=== PATIENT | female | born 1980 | race Caucasian/White ===

== ENCOUNTER 2019-12-22 07:57 | Inpatient (IN) | payer OTHER, SELFPAY ==
[2019-12-22] VITALS (41 sets, daily range): BP systolic 98–161; BP diastolic 59–121; PULSE 60–106; RESP 16; TEMP 36.9; O2SAT 100; BMI 30.7
[2019-12-22 09:37] LABS: Basophils Absolute Auto 0.1 K/mm3 (0.0-0.1); Basophils Percent Auto 0.6 % (0.2-1.2); Eosinophils Absolute Auto 0.1 K/mm3 (0-0.3); Eosinophils Percent Auto 0.6 % (0-4.4); Hematocrit 38.1 % (37.0-47.0); Hemoglobin 13.1 g/dL (12.0-15.0); Immature Granulocyte Absolute 0.09 K/mm3 (0.00-0.031); Immature Granulocyte Percent A 0.7 % (0-0.5); Lymphocytes Absolute Auto 1.83 K/mm3 (0.9-3.2); Lymphocytes Percent Auto 13.6 % (18.3-44.2); Mean Corpuscular HGB Conc 34.4 g/dl (32-36); Mean Corpuscular Volume 93.2 fl (80-100); Mean Platelet Volume 10.1 fl (7.4-10.4); Monocytes Absolute Auto 0.8 K/mm3 (0.1-0.6); Monocytes Percent Auto 5.9 % (2.6-8.5); Neutrophils Absolute Auto 10.6 K/mm3 (1.3-6.7); Neutrophils Percent Auto 78.6 % (45.5-73.1); Platelet Count Result 297 k/mm3 (150-375); Red Blood Count 4.09 M/mm3 (4.2-5.4); Red Cell Distribution Width 12.7 % (11.5-14.5); White Blood Count 13.5 K/mm3 (4.5-10.0)
[2019-12-22] MEDS: AMPICILLIN 2 GM/NS 100 ML 2 GM/100 ML BAG IVPB (09:43)
[2019-12-22] MEDS: LACTATED RINGERS 1,000 ML 125 ML IV CONT ×2 (09:43→15:34)
[2019-12-22] MEDS: OXYTOCIN 30 UNITS/NS 500 ML 30 UNITS/500 ML BAG IV CONT (09:44)
[2019-12-22] MEDS: AMPICILLIN 1 GM/NS 50 ML 1 GM/50 ML BAG IVPB (14:17)
--- NOTE | 2019-12-22 14:43 | WPDOBADMIT ---
Obstetrics - Admit Note Admission Note: record reviewed. No pertinent additions to the history and/or any subsequent changes in the physical findings that are not consistent with the expected course of the were found. SROM around midnight, forebag noted SVE 3/80/-2. moderate amount of clear, odorless fluid with AROM Additions to the history and/or subsequent changes in the physical findings follow. None.
--- NOTE | 2019-12-22 16:04 | LDADM ---
This patient, Dilcia Sanchez, was admitted to Labor/Delivery/Recovery 109 on 12/22/19 at 07:57. Plans for labor, pain management and were discussed with patient. Patient/family oriented to hospital policies and general routines including ID bracelet, bed and alarms, visiting hours, pain management, procedures, bathroom and other care routines, personal items, smoking policy, room service/diet and guest tray routines, security routines, and visiting hours. Patient/Family are encouraged to report perceived risks to care and to ask questions if they do not understand what they are told or what they should do. See OBIX for further documentation.
--- NOTE | 2019-12-22 17:01 | PM.OBPRVD ---
OB - Delivery Note Procedure Delivery date: 12/22/19 Procedure: vaginal delivery events: Prolonged Rupture of Membrane Intrapartal events: None Induction method: none Delivery augmentation: rupture of membranes and pitocin Delivery monitor: external FHT and external uterine Laceration description: Perineal - 2nd Degree Delivery repair: vicryl Specimen: No Estimated blood loss (mL): 165 Anesthesia type: Local Disposition: other () Baby Date of : 12/22/19 Time of : 16:40 Weeks of gestation at delivery: 38 Infant gender: Female Weight (pounds): 7 Weight (ounces): 13 presentation: vertex position: Left Occiput Anterior cord vessel description: 3 Vessels and Clamped/Cut Narrative: baby needing extra stimulation crying, to nursery for monitoring
[2019-12-22] MEDS: OXYTOCIN 30 UNITS/NS 500 ML 30 UNITS/500 ML BAG 125 UNITS IV CONT (17:51)
[2019-12-22] MEDS: IBUPROFEN 600 MG TABLET PO (18:45)
[2019-12-22] MEDS: BENZOCAINE 20% AER SPR (*SP) 56 GM CAN 1 SPRAY TOPICAL (18:45)
[2019-12-22] MEDS: WITCH HAZEL 40 PADS 1 PAD TOPICAL (18:45)
[2019-12-23 05:42] LABS: Hematocrit 28.2 % (37.0-47.0); Hemoglobin 9.6 g/dL (12.0-15.0)
[2019-12-23 07:11] LABS: Rapid Plasma Reagin Non-Reactive (NonReactive)
--- NOTE | 2019-12-23 08:03 | P.PNOB_ITS ---
OB - PN: Subj Subjective Date/time seen: 12/23/19 08:03 Patient comments: no complaints baby status: doing well [place] feeding status: exclusively breast feeding OB - PN: Obj Data Labs CBC & Chem 7: 12/23/19 04:35 Labs: Laboratory Results - last 24 hr 12/22/19 12/22/19 12/22/19 09:25 09:25 09:25 WBC 13.5 H RBC 4.09 L Hgb 13.1 Hct 38.1 MCV 93.2 MCH 32.0 MCHC 34.4 RDW 12.7 Plt Count 297 MPV 10.1 Immature Gran % (Auto) 0.7 H Neut % (Auto) 78.6 H Lymph % (Auto) 13.6 L [place] % (Auto) 5.9 Eos % (Auto) 0.6 Baso % (Auto) 0.6 Lymph # (Auto) 1.83 [place] # (Auto) 0.8 H Eos # (Auto) 0.1 Baso # (Auto) 0.1 Abs Immat Gran (auto) 0.09 H Absolute Neuts (auto) 10.6 H Absolute Nucleated RBC 0.0 Nucleated RBC % 0.0 RPR Non-reactive Blood Type B Positive Antibody Screen Negative 12/23/19 04:35 WBC RBC Hgb 9.6 L D Hct 28.2 L MCV MCH MCHC RDW Plt Count MPV Immature Gran % (Auto) Neut % (Auto) Lymph % (Auto) [place] % (Auto) Eos % (Auto) Baso % (Auto) Lymph # (Auto) [place] # (Auto) Eos # (Auto) Baso # (Auto) Abs Immat Gran (auto) Absolute Neuts (auto) Absolute Nucleated RBC Nucleated RBC % RPR Blood Type Antibody Screen OB - PN A/P Plan day: 1 Plan: routine care and discharge home Time Spent With Patient Time: Total time spent is greater than 50% in coordination of care (as documented) at patient's floor/unit and/or counseling patient: Review of Systems Review of Systems: All systems reviewed & are unremarkable except as noted in HPI and below Constitutional: Constitutional: Reports as per HPI Cardiovascular: Cardiovascular: Reports as per HPI Exam Const: General: comfortable Resp: Effort & Inspection: normal respiratory effort Psych: Appearance: grossly normal Affect: normal affect Attitude: cooperative Judgement: Good judgement present (Psych)
[2019-12-23 08:05] VITALS: BP 108/62; PULSE 70; RESP 18; TEMP 36.8
[2019-12-23] MEDS: DOCUSATE SODIUM 100 MG CAPSULE PO (08:45)
[2019-12-23] MEDS: MULTIVIT/MIN/PREN/FOL AC/IRON TABLET 1 TAB PO (08:45)
[2019-12-23] MEDS: SERTRALINE HCL 25 MG TABLET PO (08:45)
[2019-12-23] MEDS: IBUPROFEN 600 MG TABLET PO (08:45)
[2019-12-23] MEDS: POLYSACCHARIDE IRON COMPLEX 150 MG CAPSULE PO ×2 (08:45→15:59)
--- NOTE | 2019-12-23 09:20 | PC.NURSE ---
Mother called out for assist with latch and waking infant. Mother's last child to breastfeed is now 10yrs old. Mother is concerned is not waking. Assured mother this is normal for the first several days. Reviewed infant feeding cues, frequencies, duration of feedings, feeding elimination flow sheet, and signs of adequate intake. Demonstrated stimulation techniques to wake for feeding. Assisted with infant to breast. Reviewed positioning/alignment in cross cradle, holding breast in U hold and guided asymmetrical latch on. Discussed rational for each. was able to latch correctly within the first few attempts. nursed eagerly, with steady draws and frequent swallowing noted. Reviewed signs of a correct latch, effective nursing and suck swallow ratio. Infant was able to maintain latch without discomfort to mother. Nipple care reviewed. Suggested mother stimulate while feeding to keep infant awake and nursing effectively and to assist with maintaining deep latch. Instructed mother to call out for RN assistance if she is unable to latch for feeding or she has discomfort with nursing. Instructed feeding should be initiated three hours from start of last feeding or if feeding cues are noted before. Mother voiced understanding of information shared.
[2019-12-23 19:30] VITALS: BP 114/60; PULSE 80; RESP 16; TEMP 36.9; O2SAT 100
--- NOTE | 2019-12-24 07:00 | PC.NURSE ---
Pt introductions made and plan of care discussed per post , pain management, breast feeding, daily care activities and pending discharge to home> PT verbalized understanding of such care.
--- NOTE | 2019-12-24 08:07 | P.PNOB_ITS ---
OB - PN: Subj Subjective Date/time seen: 12/24/19 08:07 OB - PN: Obj Data Labs CBC & Chem 7: 12/23/19 04:35 OB - PN A/P Plan day: 2 Plan: routine care and discharge home Comments: Follow up 4 weeks. Time Spent With Patient Time: Total time spent is greater than 50% in coordination of care (as documented) at patient's floor/unit and/or counseling patient: Time with patient: less than 15 minutes Review of Systems Review of Systems: All systems reviewed & are unremarkable except as noted in HPI and below Exam 2 Narrative: Exam Narrative: Fundus firm and vaginal flow controlled. Const: General: comfortable Resp: Effort & Inspection: normal respiratory effort Cardio: Rate: regular rate Psych: Appearance: grossly normal Affect: normal affect Attitude: cooperative Judgement: Good judgement present (Psych)
--- NOTE | 2019-12-24 08:09 | PM.OBDSVD ---
DS: Admitting Diagnosis Admitting Diagnosis Admitting Diagnosis: Labor OB - DS: Summary OB Procedures : None OB Procedures Intrapartum: Spontaneous Vag Delivery OB Procedures: : None Time Spent with Patient Time attestation: Total time spent providing and/or coordinating discharge services: Discharge Plan Discharge Attending physician on discharge: Sharron Sunshine Discharging Clinician: Katia Olivares Patient Disposition: Home, Self-Care Activity: pelvic rest Diet: regular Discharge Instructions: Education: Mom and Baby Guide Given to: Mother Follow-Up: Call your delivering provider's office for an appointment to be seen in: 4 Weeks Mom and baby should come to the [facility] for the follow-up appointment. Appointment Date/Time: December 26, 2019 at 11:00 am What to expect at your follow-up visit: Blood Pressure Check Call [phone] if you are unable to keep your appointment time. BREAST CARE: * Wear a snug supportive bra. * For engorgement discomfort: Breast Feeding: * Apply warm moist washcloths * Express milk as needed to relieve engorgement * Wear loose clothing Bottle Feeding: * May apply ice packs * For sore nipples: * Identify correct latch-on * Apply warm moist washcloths before and after nursing * Air dry nipples after nursing * May apply Lansinoh cream to nipples PERINEAL CARE: * Until bleeding stops, use your luis bottle after urinating * Change your pad frequently throughout the day * You may take sitz baths several times a day (fill your bathtub with warm water and soak for 20 minutes.) Do NOT bathe in the water * No tub baths until seen by your physician - You may shower ACTIVITY: * Rest as much as possible. * Do not exercise or lift anything heavier than your baby (such as laundry or other children.) * Avoid stairs or driving as much as possible. * Do not put anything into the vagina. No douching, tampons, or sexual activity until seen by physician. NOTIFY PHYSICIAN IF YOU HAVE ANY QUESTIONS OR IF ANY OF THE FOLLOWING SYMPTOMS OCCUR: * If your perineum becomes red, swollen, or more painful than what you have experienced in the hospital. * If your vaginal bleeding becomes foul smelling. * If your vaginal bleeding becomes more heavy than a period or if your bleeding changes from pink to bright red. However, you may pass an occasional walnut-sized clot once or twice for the first week . * If you experience a sharp, shooting pain in you calves. * If you discover a hard, reddened area on your breast or if you experience flu-like symptoms. *If you have a fever of 100.4 or greater DIET: * Eat regular, well-balanced meals. * Drink plenty of fluids daily. If , drink to thirst. Patient Instructions: Antibiotic Form Stand Alone Forms: General Discharge Information Follow-up/Referrals: Katia Olivares CNM [Certified Nurse Electromechanical Equipment Tester] - 4 Weeks Discharge Medications: Continued sertraline 25 mg Tablet 25 mg PO DAILY RF: 0 PNV [id number] [] 28 mg iron- 800 mcg Tablet 1 tablet PO DAILY RF: 0 Date of admission: 12/22/19 07:57 Primary Care Provider: Victor M,Malachi Admitting Provider: Sharron Sunshine Attending physician on admission: Sharron Sunshine
[2019-12-24 08:25] VITALS: BP 118/71; PULSE 71; RESP 16; TEMP 37.1
[2019-12-24 10:00] VITALS: PULSE 71; RESP 16; O2SAT 100
[2019-12-24] MEDS: MULTIVIT/MIN/PREN/FOL AC/IRON TABLET 1 TAB PO (10:09)
[2019-12-24] MEDS: DOCUSATE SODIUM 100 MG CAPSULE PO (10:09)
[2019-12-24] MEDS: POLYSACCHARIDE IRON COMPLEX 150 MG CAPSULE PO (10:09)
--- NOTE | 2019-12-24 11:00 | PC.NURSE ---
Observed mother is able to independently latch with appropriate positioning/alignment. She denies any nipple discomfort, is feeding as required and waking infant to feed if needed. has had at least 8 effective feedings in the past 24 hours, and is currently meeting outcomes for weight, output, jaundice and feeding frequencies. Mother states she feels confident to continue effective at home. Reviewed transition to breast milk, signs of adequate intake, and engorgement/relief. Instructed to call ICP if intake/output less than required. Reviewed regular medications mother is taking. Information provided per Deb. Reviewed community resources on the [facility] website and in the Mom/Baby guide. Information on outpatient services provided. Mother has no further questions at this time.
--- NOTE | 2019-12-24 11:00 | PC.NURSE ---
Pt received discharge instructions per protocol and verbalized understanding of such care.
--- NOTE | 2019-12-24 11:38 | PC.NURSE ---
PT discharged to home ambulatory accompanied by infant and significant other and taken to waiting car. Follow up appts confirmed
[2019-12-26 11:15] VITALS: BP 124/71; PULSE 76; RESP 14; TEMP 37.3; O2SAT 98
== END 2019-12-24 11:38 | disposition home or self-care (01) | DRG 807 ==
LOC: ANHLDR 08:30 → ANHOB2 19:28
PROVIDERS: Advanced Practice Midwife; Admitting Provider Obstetrics & Gynecology; PCP Internal Medicine; Visit Provider Obstetrics & Gynecology
DX: O42.92 Full-term premature rupture of membranes, unspecified as to length of time between rupture and onset of labor (principal); Z37.0 Single live birth; Z3A.38 38 weeks gestation of pregnancy; O99.824 Streptococcus B carrier state complicating childbirth; O70.1 Second degree perineal laceration during delivery
CPT/HCPCS: 36415; 85014; 85018; 85025; 86592; 86850; 86900; 86901; A9270; J0290; J2590; J3010; J7120

== ENCOUNTER 2024-11-08 19:23 | Emergency (ER) | payer OTHER, SELFPAY ==
--- OUTSIDE RECORDS SUMMARY | 2024-11-08 19:25 | XMS_ITS | Data Portability ---
Author Organization [facility] Rmaan HERNANDEZ Address [address] [facility] [place] [address] Care Team Providers Care Cook Roast Name Role Phone LANDON RACHEL [facility] Assessment No assessment recorded. Plan of Treatment Reminders Order Date Submit Date Provider Last Modified By Organization Details Last Modified Time Details Appointments None recorded. Lab HbA1c (hemoglob in A1c), blood 2024 025 [facility], [address] [place] [address], [address], 5 03:36:31 lipid panel, serum 2024 025 [facility], [address] [place] [address], [address], 5 03:36:29 CMP, serum or plasma 2024 025 [facility], [address] [place] [address] 2, [place], [address], 5 03:36:30 CBC 2024 025 [facility], [address] [place] [address] 2, [place], [address], 5 03:36:32 lipid panel, serum 2022 023 [facility], [address] [place] [address], [address], [address], 3 15:23:11 CMP, serum or plasma 2022 023 [facility], [address], [address], [place], [address], 3 15:23:10 CBC w/ auto diff 2022 023 [facility], [address], [address], [place], [address], 3 15:23:10 TSH, ultra-sen sitive, serum 2022 023 [facility], [address], [address], [place], [address], 3 15:23:10 lipid panel, serum 2021 022 [facility], [address]anny [address], [address], [place], [address], 2 15:06:53 CMP, serum or plasma 2021 022 [facility] VILL[facility], [address]anny [address], [address], [place], [address], 2 15:07:08 vitamin D, 25-hydrox y, total, serum 2021 022 [facility], [address], [address], [place], [address], 2 15:06:52 CBC w/ auto diff 2021 022 [facility], [address]anny [address], [address], [place], [address], 2 15:07:08 TSH, ultra-sen sitive, serum 2021 022 [facility], [address] [facility], [address], [place], [address], 15:07:08 Referral None recorded. Procedures None recorded. Surgeries None recorded. Imaging None recorded. Medication Orders Zyrtec [address] [facility][id number], [address], [place], [place], [id number], 5 16:20:20 triamcino lone acetonide 0.1 % topical ointment [address] [facility] #[id number], [address], [place], [place], [id number], 5 16:20:25 sertralin e 25 mg tablet 2022 023 [facility] #[id number], [address], [place], [place], [id number], 5 08:58:38 sertralin e 25 mg tablet 2020 021 [facility] #[id number], [address], [place], [place], [id number], 5 08:58:38 Patient TargetsNo targets recorded. Patient Instructions Encounter Date Encounter Id Patient Instructions Last Modified By Organization Details Last Modified Time 02/22/2021 [id number] anxiety disorder : care instructions ssuthan Not available 02/22/2021 15:34:25 06/21/2021 [id number] anxiety disorder : care instructions ssuthan Not available 06/21/2021 15:06:50 learning about healthy weight ssuthan Not available 06/21/2021 15:06:50 05/11/2022 [id number] A healthy lifestyle: care instructions ssuthan Not available 05/11/2022 15:22:58 anxiety disorder : care instructions ssuthan Not available 05/11/2022 15:22:59 06/06/2024 [id number] A healthy lifestyle: care instructions [email or web address] Not available 06/06/2024 09:33:08 Reason for Referral None Reported. Results Created Date Observation Date Name Description Value Unit Range Abnormal Flag Note LastModifiedBy Organization Detail LastModifiedTime 02/02/20 24 02/02/2024 SARS- CoV+S ARS-C oV-2 (COVI D-19) Ag [Pres ence] in Respi rator y syste m speci men by Rapid immun oassa y influenza A Ag, POC Negati ve text: negati ve Influ efrain A Ag, POC Negat clemencia Negat clemencia [facility] Not Available Not Available 07/16/2024 16:09:04 02/02/20 24 02/02/2024 SARS- CoV+S ARS-C oV-2 (COVI D-19) Ag [Pres ence] in Respi rator y syste m speci men by Rapid immun oassa y influenza B Ag, POC Negati ve text: negati ve Influ efrain B Ag, POC Negat clemencia Negat clemencia [facility] Not Available Not Available 07/16/2024 16:09:04 02/02/20 24 02/02/2024 SARS- CoV+S ARS-C oV-2 (COVI D-19) Ag [Pres ence] in Respi rator y syste m speci men by Rapid immun oassa y covid-19 Ag POC Presum ptive Negati ve text: presum ptive negati ve, invali d COVID -19 Ag POC Presu mptiv e Negat clemencia Presu mptiv e Negat clemencia, Inval id [facility] Not Available Not Available 07/16/2024 16:09:04 02/02/20 24 02/02/2024 SARS- CoV+S ARS-C oV-2 (COVI D-19) Ag [Pres ence] in Respi rator y syste m speci men by Rapid immun oassa y interpretati on and review of laboratory results Normal Not Available Not Available 07/05 16:09:04 06/06/19 25 06/07/2024 LIPID PANEL cholesterol, total 179 mg/dL 100-19 9 Not Available [facility] ([facility]) [address] [facility] [place], [address], 06/07/2024 03:36:28 06/06/19 25 06/07/2024 LIPID PANEL triglyceride s 77 mg/dL 0-149 Not Available [facility] ([facility]) [address] [facility] [place], [address], 06/07/2024 03:36:28 06/06/19 25 06/07/2024 LIPID PANEL HDL cholesterol 54 mg/dL >39 Not Available [facility] ([facility]) [address] [place], [address], 06/07/2024 03:36:28 06/06/19 25 06/07/2024 LIPID PANEL VLDL cholesterol nayana 14 mg/dL 5-40 Not Available [facility] ([facility]) [address] [place], [address], 06/07/2024 03:36:28 06/06/19 25 06/07/2024 LIPID PANEL LDL chol calc ([facility]) 111 mg/dL 0-99 above high normal Not Available [facility] ([facility]) [address] [place], [address], 06/07/2024 03:36:28 06/06/19 25 06/07/2024 COMP. METAB OLIC PANEL (14) glucose 86 mg/dL 70-99 Not Available [facility] ([facility]) [address] [place], [address], 06/07/2024 03:36:30 06/06/19 25 06/07/2024 COMP. METAB OLIC PANEL (14) BUN 10 mg/dL 6-24 Not Available [facility] ([facility]) [address] [place], [address], 06/07/2024 03:36:30 06/06/19 25 06/07/2024 COMP. METAB OLIC PANEL (14) creatinine 0.85 mg/dL 0.57-1 .00 Not Available [facility] ([facility]) [address], [place], [address], 06/07/2024 03:36:30 06/06/19 25 06/07/2024 COMP. METAB OLIC PANEL (14) eGFR 87 mL/mi n/1.7 3 >59 Not Available [facility] ([facility]) [address] [place], [address], 06/07/2024 03:36:30 06/06/19 25 06/07/2024 COMP. METAB OLIC PANEL (14) BUN/creatini ne ratio 12 9-23 Not Available [facility] ([facility]) [address] [place], [address], 06/07/2024 03:36:30 06/06/19 25 06/07/2024 COMP. METAB OLIC PANEL (14) sodium 139 mmol/ L 134-14 4 Not Available [facility] ([facility]) [address] [place], [address], 06/07/2024 03:36:30 06/06/19 25 06/07/2024 COMP. METAB OLIC PANEL (14) potassium 4.2 mmol/ L 3.5-5. 2 Not Available [facility] ([facility]) [address] [place], [address], 06/07/2024 03:36:30 06/06/19 25 06/07/2024 COMP. METAB OLIC PANEL (14) chloride 104 mmol/ L 96-106 Not Available [facility] ([facility]) [address] [place], [address], 06/07/2024 03:36:30 06/06/19 25 06/07/2024 COMP. METAB OLIC PANEL (14) carbon dioxide, total 23 mmol/ L 20-29 Not Available [facility] ([facility]) [address] [facility] [place], [address], 06/07/2024 03:36:30 06/06/19 25 06/07/2024 COMP. METAB OLIC PANEL (14) calcium 9.3 mg/dL 8.7-10 .2 Not Available [facility] ([facility]) [address] [facility], [place], [address], 06/07/2024 03:36:30 06/06/19 25 06/07/2024 COMP. METAB OLIC PANEL (14) protein, total 7.2 g/dL 6.0-8. 5 Not Available [facility] ([facility]) [address] [facility], [place], [address], 06/07/2024 03:36:30 06/06/19 25 06/07/2024 COMP. METAB OLIC PANEL (14) albumin 4.5 g/dL 3.9-4. 9 Not Available [facility] ([facility]) [address] [facility], [place], [address], 06/07/2024 03:36:30 06/06/19 25 06/07/2024 COMP. METAB OLIC PANEL (14) globulin, total 2.7 g/dL 1.5-4. 5 Not Available [facility] ([facility]) [address] [facility], [place], [address], 06/07/2024 03:36:30 06/06/19 25 06/07/2024 COMP. METAB OLIC PANEL (14) bilirubin, total 0.6 mg/dL 0.0-1. 2 Not Available [facility] ([facility]) [address] [facility], [place], [address], 06/07/2024 03:36:30 06/06/19 25 06/07/2024 COMP. METAB OLIC PANEL (14) alkaline phosphatase 78 IU/L 44-121 Not Available [facility] ([facility]) [address] [facility], [place], [address], 06/07/2024 03:36:30 06/06/19 25 06/07/2024 COMP. METAB OLIC PANEL (14) AST (SGOT) 19 IU/L 0-40 Not Available [facility] ([facility]) [address] [place], [address], 06/07/2024 03:36:30 06/06/19 25 06/07/2024 COMP. METAB OLIC PANEL (14) ALT (SGPT) 18 IU/L 0-32 Not Available [facility] ([facility]) [address] [facility], [place], [address], 06/07/2024 03:36:30 06/06/19 25 06/07/2024 HEMOG LOBIN A1C hemoglobin A1C 4.9 % 4.8-5. 6 Predi abete s: 5.7 - 6.4 Diabe wilton: >6.4 Glyce veronica contr ol for adult s with diabe wilton: <7.0 Not Available [facility] ([facility]) [address] [facility], [place], [address], 06/07/2024 03:36:31 06/06/19 25 06/06/2024 CBC, PLATE LET, NO DIFFE RENTI AL WBC 9.0 x10e3 /uL 3.4-10 .8 Not Available [facility] ([facility]) [address] [place], [address], 06/07/2024 03:36:32 06/06/19 25 06/06/2024 CBC, PLATE LET, NO DIFFE RENTI AL RBC 4.30 x10e6 /uL 3.77-5 .28 Not Available [facility] ([facility]) [address] [place], [address], 06/07/2024 03:36:32 06/06/1906/06/2024 CBC, PLATE LET, NO DIFFE RENTI AL hemoglobin 13.2 g/dL 11.1-1 5.9 Not Available [facility] ([facility]) [address] [facility], [place], [address], 06/07/2024 03:36:32 06/06/1906/06/2024 CBC, PLATE LET, NO DIFFE RENTI AL hematocrit 40.4 % 34.0-4 6.6 Not Available [facility] ([facility]) [address] [facility], [place], [address], 06/07/2024 03:36:32 06/06/1906/06/2024 CBC, PLATE LET, NO DIFFE RENTI AL MCV 94 fL 79-97 Not Available [facility] ([facility]) [address] [facility], [place], [address], 06/07/2024 03:36:32 06/06/1906/06/2024 CBC, PLATE LET, NO DIFFE RENTI AL MCH 30.7 pg 26.6-3 3.0 Not Available [facility] ([facility]) [address] [facility], [place], [address], 06/07/2024 03:36:32 06/06/1906/06/2024 CBC, PLATE LET, NO DIFFE RENTI AL MCHC 32.7 g/dL 31.5-3 5.7 Not Available [facility] ([facility]) [address] [facility], [place], [address], 06/07/2024 03:36:32 06/06/1906/06/2024 CBC, PLATE LET, NO DIFFE RENTI AL RDW 11.9 % 11.7-1 5.4 Not Available [facility] ([facility]) [address] [facility], [place], [address], 06/07/2024 03:36:32 06/06/1906/0606/06/2024 CBC, PLATE LET, NO DIFFE PETER AL platelets 397 x10e3 /uL 150-45 0 Not Available [facility] ([facility]) [address] [facility], [place], [address], 06/07/2024 03:36:32 Result Notes None recorded. Problems Name Problem SNOMED Code Status Onset Date Resolution Date Notes Provider Name and Address Organization Details Recorded Time Carpal tunnel syndrome 89729098 Active 2016 DEANNE Boucher, [place] - [facility] 8 12:01:04 Body mass index 25-29 - overweight 087913216 Active 2018 Malachi Dow MD Attn: Accounting, [address] [place], [address], [place] [facility] 9 09:40:08 Generalized anxiety disorder 13882565 Active 2020 Malachi Dow MD Attn: Accounting, [address] [place], [address], [place] [facility] 1 14:18:10 Contact dermatitis caused by urushiol from [facility] 005266273 Active DEANNE Bou[place], [place] - [facility] 8 12:01:04 Non-allergic anaphylaxis 47455346 Active 2016 DEANNE Boucher, [place] [facility] 8 12:01:04 Problem Notes None recorded. Medical Equipment None Reported. Allergies No known drug allergies Medications Name Sig Start Date Stop Date Status Note LastModified by Organization Details LastModified Time Mirena 21 mcg/24 hr (up to 8 years) 52 mg intrauter ine device Take by intraute rine route. active inserted 12/2019 Not Available Not Available Not Available prednison e 10 mg tablet TAKE 4 TABLETS BY MOUTH IN THE MORNING FOR 5 DAYS THEN TAKE 2 TABLETS BY MOUTH FOR 5 DAYS THEN TAKE 1 TABLET BY MOUTH FOR 5 DAYS active Not Available Not Available No t Available clindamyc in HCl 300 mg capsule Take 1 capsule every 6 hours by oral route for 10 days. 10/18 completed Not Available Not Available Not Available prednison e 20 mg tablet 02/22 completed Not Available Not Available Not Available Zyrtec 10 mg tablet Take 1 tablet every day by oral route. 2024 active Not Available Not Available Not Avai lable sulfameth oxazole 800 mg-trimet hoprim 160 mg tablet TAKE 1 TABLET BY MOUTH TWICE DAILY 06/06 completed Not Available Not Available Not Available tramadol 50 mg tablet TAKE 1 TABLET BY MOUTH EVERY 6 HOURS NEEDED FOR PAIN 05/11 completed Not Available Not Available Not Available triamcino lone acetonide 0.1 % topical cream APPLY A THIN LAYER TO THE AFFECTED AREA(S) BY TOPICAL ROUTE 2 TIMES PER DAY 10/19 completed Not Available Not Available Not Available cephalexi n 500 mg capsule 10/19 completed Not Available Not Available Not Available triamcino lone acetonide 0.1 % topical ointment APPLY THIN LAYER TOPICALL Y TO THE AFFECTED AREA TWICE DAILY active Not Available Not Available No t Available gabapenti n 300 mg capsule Take 1 capsule every day by oral route at bedtime. 02/28 completed Not Available Not Available Not Available sertralin e 25 mg tablet TAKE 1 TABLET BY MOUTH EVERY DAY 06/06 completed Not Available Not Available Not Available hydroxyzi ne HCl 25 mg tablet 12/27 completed Not Available Not Available Not Available epinephri ne 0.3 mg/0.3 mL injection , auto-inje ctor 06/06 completed Not Available Not Available Not Available methylpre dnisolone 4 mg tablets in a dose pack TAKE DIRECTED WITH FOOD 05/11 completed Not Available Not Available Not Available sertralin e 50 mg tablet TK 1 T PO QD 12/08 completed Not Available Not Available Not Available Triveen-D uo DHA 29 mg-1 mg-400 mg oral pack 02/22 completed Not Available Not Available Not Available Vitals Date Recorded Body height Body mass index (BMI) Body weight Respiratory rate Body temperature Oxygen saturation Oxygen saturation in Arterial blood by Pulse oximetry Heart rate Systolic And Diastolic Provider Name and Address Organization Details Last Updated DateTime 3 170.18 cm 30.4 kg/m2 25757.6 4 g 12 /min 97 [degF] 98 % 98 % 72 /min 116/64 mm[Hg] Angelica Kinerd, [facility] 3 15:12:09 Date Recorded Body height Body mass index (BMI) Body weight Oxygen saturation Oxygen saturation in Arterial blood by Pulse oximetry Heart rate Body temperature Systolic And Diastolic Provider Name and Address Organization Details Last Updated DateTime 5 170.18 cm 31.6 kg/m2 17527.8 7 g 98 % 98 % 80 /min 98.5 [degF] 116/81 mm[Hg] Abigail Lowell [facility] 5 08:54:55 Date Recorded Body height Body mass index (BMI) Body weight Respiratory rate Body temperature Heart rate Oxygen saturation Oxygen saturation in Arterial blood by Pulse oximetry Systolic And Diastolic Provider Name and Address Organization Details Last Updated DateTime 2 170.18 cm 28.2 kg/m2 94239.6 3 g 12 /min 97.2 [degF] 76 /min 98 % 98 % 110/76 mm[Hg] Angelica Kine [facility] 2 14:31:26 Date Recorded Body height Body mass index (BMI) Body weight Oxygen saturation Oxygen saturation in Arterial blood by Pulse oximetry Heart rate Body temperature Respiratory rate Systolic And Diastolic Provider Name and Address Organization Details Last Updated DateTime 5 170.18 cm 31.1 kg/m2 93627.3 9 g 99 % 99 % 76 /min 97.9 [degF] 16 /min 123/81 mm[Hg] Ysabel Schneider MA [facility] 5 15:50:25 Social History Question Answer Notes LastModified by Organizat ion Details LastModified Time Tobacco Smoking Status Never Smoker JOSEPH Gil, [facility] 06/02/2014 15:18:13 Do You Have An Advance Directive? No Information not available 10/19/2020 Are You Blind Or Do You Have Difficulty Seeing? No Information not available 10/19/2020 What Is Your Level Of Caffeine Consumption? Moderate 32oz Soda Daily Information not available 06/06/2024 In The 14 Days Before Symptom Onset, Have You Had Close Contact With A Laboratory-confir med COVID-19 While That Case Was Ill? No Information not available 10/19/2020 In The 14 Days Before Symptom Onset, Have You Had Close Contact With A Person Who Is Under Investigation For COVID-19 While That Person Was Ill? No Information not available 10/19/2020 Have You Been To An Area Known To Be High Risk For COVID-19? No Information not available 10/19/2020 Are You Deaf Or Do You Have Serious Difficulty Hearing? No Information not available 10/19/2020 What Type Of Diet Are You Following? REGULAR Information not available 10/19/2020 What Is The Highest Grade Or Level Of School You Have Completed Or The Highest Degree You Have Received? [id number] Information not available 10/19/2020 Are There Any Guns Present In Your Home? No Information not available 10/19/2020 What Was The Date Of Your Most Recent Tobacco Screening? 06/06/2024 Information not available 06/06/2024 How Many Children Do You Have? 3 Information not available 06/06/2024 Do You Use Protection During Sex? No Information not available 06/06/2024 What Is Your Relationship Status? Information not available 10/19/2020 Do You Use Your Seat Belt Or Car Seat Routinely? Yes Information not available 10/19/2020 Are You Sexually Active? Yes Information not available 06/06/2024 Do You Have Smoke And Carbon Monoxide Detectors In Your Home? Yes Information not available 10/19/2020 Are You Passively Exposed To Smoke? No Information no t available 06/06/2024 Do You Use Sunscreen Routinely? No Information not available 10/19/2020 Has Tobacco Cessation Counseling Been Provided? No Information not available 10/19/2020 Sex: Female Functional Status Question Answer Note LastModified by Organizat ion Details LastModified Time Do you use any illicit or recreational drugs? No Information not available 10/19/2020 Do you or have you ever used any other forms of tobacco or nicotine? No Information not available 10/19/2020 What is your level of alcohol consumption? None Information not available 10/19/2020 Are you currently employed? Yes Information not available 10/19/2020 Are you able to care for yourself? 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 None Information not available 10/19/2020 Mental Status Question Answer Note LastModified by Organizat ion Details LastModified Time Do you feel stressed (tense, restless, nervous, or anxious, or unable to sleep at night)? [id number] 06/06/24 pt states daughter does not sleep well Information not available 06/06/2024 Family History Relationship Description Onset Age of this Age Resolved Age Notes LastModified by Organization Details LastModified Time Father No current problems or disability [email or web address] Not available 05/09 09:02:24 Mother No current problems or disability [email or web address] Not available 05/09 09:02:25 Medical History Condition Response Coronary Artery Disease N Other N Atrial Fibrillation N High Blood Pressure N Depression Y COPD N Blood Clots N Anxiety Disorder N Muscle, Joint, or Bone Problems N Arthritis N Acid Reflux (GERD) N Cancer N Stroke N Headaches N Kidney or Bladder Problems N Have you had a mammogram in the last yea r? N Eating Disorder N Skin Problems N Asthma N Allergies N Have you had a PSA blood test in the las t year? N Substance Abuse N Hepatitis N ADHD N High Cholesterol N Liver Disease N Schizophrenia N Thyroid Problems N GI Problems N Anemia N Heart Attack (PA) N Diabetes N Seizures/Epilepsy N Have you had a colonoscopy in the last 1 0 years? N Osteoporosis N Heart Failure N Gynecological History Statement/Question Response Date of Last Mammogram Date of LMP Menses Monthly N Date of Last Pap Smear Age at Menarche 12 Current Control Method IUD Age at First Child 25 Obstetrics History GPAL:G 3 P 3 0 0 3 Type Value Multiple Births 0 Full Term 3 Induced 0 Spontaneous 0 Premature 0 Living 3 Ectopics 0 Total 3 Immunizations Vaccine Type Date Status Note Provider Dmitriy dockery and Address Organization Details Recorded Time Td(adult) unspecified formulation 01/01/2002 chacha Hurtado LPN [place], [place] [facility] 02/27/2018 12:01:10 OPV, Unspecified 1980 completed Татьяна 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, 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 [place], [place] [facility] 02/27/2018 12:01:10 OPV, Unspecified 1980 completed Татьяна 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, 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 [place] [facility] 02/27/2018 12:01:10 OPV, Unspecified 1980 completed Татьяна 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, 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 [place] [facility] 02/27/2018 12:01:10 OPV, Unspecified 11/16/1981 completed Татьяна 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, 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 [place] [facility] 02/27/2018 12:01:10 OPV, Unspecified 12/24/1985 completed Татьяна 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, 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 [place] [facility] 02/27/2018 12:01:10 MMR 05/04/1981 completed Татьяна Bryant, 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 [place] [facility] 02/27/2018 12:01:10 MMR 08/27/1991 completed Татьяна Bryant, 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 [place] [facility] 02/27/2018 12:01:10 DTaP-IPV 1980 completed Татьяна Bryant, 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 [place] [facility] 02/27/2018 12:01:10 DTaP-IPV 1980 completed Татьяна Bryant, 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 [place] [facility] 02/27/2018 12:01:10 DTaP-IPV 1980 completed Татьяна Bryant, 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 [place] [facility] 02/27/2018 12:01:10 DTaP-IPV 11/16/1981 completed Татьяна Bryant, 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 [place] [facility] 02/27/2018 12:01:10 DTaP-IPV 12/24/1985 completed Татьяна Bryant, 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 [place] [facility] 02/27/2018 12:01:10 Past Encounters Encounter ID Performer Location Encounter Start Date Encounter Closed Date Diagnosis/Indication Diagnosis SNOMED-CT Code Diagnosis ICD10 Code Diagnosis Note [id number] MD Guilherme Brewer ([facility]) [address] [place] [address] 06/02/2014 15:04:44 06/02/2014 16:29:16 Health examination of sub-group [id number] 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 Will place the PPD test today. [id number] MD Guilherme Brewer ([facility] [address] [place] [address] 10/27/2014 16:23:54 10/27/2014 16:53:08 Contact dermatitis caused by urushiol from [facility] iris [id number] Take Medrol dose pack with meal and use the cream locally. Use OTC Benadryl as needed for itching (Pt has it). [id number] MD Guilherme Brewer ([facility] [address] [place] [address] 12/27/2016 10:57:01 12/27/2016 15:21:11 Non-allergic anaphylaxis 27551081 T78.2XXS s/p bug stung 10 days ago, Doing well now. [id number] MD Guilherme Brewer ([facility]) [address] [place] [address] 04/18/2017 15:53:44 04/19/2017 09:49:53 Carpal tunnel syndrome 68685711 G56.01 R/side.Con firm with [facility]. take gabapentin at nightPt has a wrist brace- may wear it at night and day PRN [id number] MD Guilherme Brewer ([facility]) [address] [place] [address] 06/18/2017 09:49:51 06/19/2017 17:01:37 History and physical examination, pre-employment [id number] Z02.1 Cleared without restrictio n. PPD todate.Alr nagi uptodate with tdap per the pt.Denies to get flu shot. Carpal rossana tung syndrome [id number] G56.01 R/side.Con firm with [facility]. take gabapentin at nightPt has a wrist brace- may wear it at night and day PRN Addendum 06/18/17Wri st splint alone helps it seems. Overweight [id number] E66 .3 Recommend to loose weight with diet control and exercise. [id number] MD Guilherme Brewer 14 IM [address] [facility] [place] [address] 02/27/2018 11:11:12 02/28/2018 10:49:15 Cellulitis [id number] L03.90 With abcess, already had I & D yesterday and on bactrim.Up date with Tdap per the pt (works at [employer] also her last child is 8 yrs old)Will sent out old pack for C& sensitivit y and new pack applied after cleaning with H2O2.. RTC tomorrow and in 1 wk [id number] MD Guilherme Brewer 14 IM 4 [facility] [place] [address] 02/28/2018 13:50:56 03/01/2018 10:59:17 Cellulitis [id number] L03.90 With abcess, already had I & D yesterday and on bactrim.Up date with Tdap per the pt (works at Day[employer] also her last child is 8 yrs old)Will sent out old pack for C& sensitivit y and new pack applied after cleaning with H2O2.. RTC tomorrow and in 1 wkAddendum 02/28/18He re for dressing change- pt tolerated the procedure. recommend to change dressing if soaked.RTC tomorrow to change dressing and see in 5 days as well. Complete bactrim, awaiting sensitivit y results. [id number] MD Guilherme Velásquez 14 IM 4 [facility] [place] [address] 03/01/2018 14:31:50 03/04/2018 15:32:19 Cellulitis [id number] L03.90 Counseled on cellulitis and medication -continue Bactrim and start Clindamyci n, soak foot in warm soapy water 3 times a day. If worsening -go to ER if no improvemen t after starting new antibiotic Abscess 196271902 L02.91 Dr. Cornelius willing to take pt-apt scheduled for Sunday [id number] MD Guilherme Brewer 14 IM [address] [facility] [place] [address] 03/08/2018 12:01:34 03/08/2018 17:26:28 Eruption [id number] R21 Probably due to clindamyci n, Pt to stop it ( so far completed 7 days Rx, mno discharge / local tenderness at I & D site)If no better, call in for probable triamcinol one topical. [id number] MD Guilherme Brewer 14 IM 4 [facility] [place] [address] 10/18/2018 09:00:41 10/21/2018 10:30:12 Contact dermatitis caused by urushiol from [place] poison iris 715748688 L25.5 Use the cream. Use protection while working in the yard. Body mass index 25-29 - overweight 155687624 Z68.26 Recommend to loose weight with diet control and exercise. [id number] MD Guilherme Brewer 14 IM 4 [facility] [place] [address] 10/19/2020 08:15:36 10/20/2020 11:31:46 Generalized anxiety disorder 14863388 F41.1 Better while on sertraline 25mg daily Ct it Aware of SEs. [id number] MD Guilherme Brewer 14 IM 4 [facility] [place] [address] 12/08/2020 12:29:38 12/10/2020 16:54:15 Contact dermatitis caused by urushiol from [place] poison iris 108463275 L25.5 Use the cream. Use protection while working in the yard. 1OTC hydrocorti kayye didn't help per the ptTry medrol dose nikia with mealbenadr yl OTC (pt has it) for itching. [id number] MD Guilherme Brewer 14 IM 4 [facility] [place] [address] 02/22/2021 14:36:02 02/23/2021 14:23:17 Generalized anxiety disorder 16616328 F41.1 Better while on sertraline 25mg daily Ct it Aware of SEs. Croupy cough 855785996 R 05.9 From her daughterRe commended OTC cough syrupHydra te wellCall if no better/ go to ER [id number] MD Guilherme Brewer 14 IM 4 [facility] [place] [address] 06/21/2021 14:21:17 06/22/2021 13:52:25 Generalized anxiety disorder 49083793 F41.1 Symptomati cole feels lot better.Ct all medication . deep breathing exercise as explained. Awre of medication side effects (weird dream/suic idal thoughts- to stop medication and call the office) Body mass index 25-29 - overweight 839636313 Z68.26 Recommend to loose weight with diet control and exercise. Long-term drug therapy 107270830 Z79.899 Vaccine de clined by patient 6097238177 02 Z28.21 Refuses flu and covid shots! [id number] MD Guilherme Brewer 14 IM [address] [facility] [address] [place] [address] 05/11/2022 14:52:52 05/12/2022 11:24:30 Generalized anxiety disorder 30938647 F41.1 Symptomati cole feels lot better.Ct all medication . deep breathing exercise as explained. Aware of medication side effects (weird dream/suic idal thoughts- to stop medication and call the office) Overweight 171304731 E66 .3 Recommend to loose weight with diet control and exercise. Long-term drug therapy 653991220 Z79.899 Influenza vaccination declined 237827806 Z28.21 [id number] LANDON RACHEL MD [facility] ([employer]) [address] [place] [address] 06/06/2024 08:46:53 06/11/2024 11:03:50 Adult health examination 963561166 Z00.00 - Reviewed risks for cardiovasc ular disease, infection, and cancer; ordered screening tests as appropriat e- Recommende d annual flu vaccine and updated 6196-4412 COVID vaccine Obesity 586897224 E66.81 1 Z68.31 - Discussed healthy behaviors, including eating a nutritious diet and incorporat ing regular physical activity into day- Provided handout on healthy lifestyle Diabetes m ellitus screening 657872501 Z13.1 - BMI 31.6 at age 44. DM2 screening recommende d per USPSTF; f/u A1c. Depression screening 171 522369 Z13.31 - Negative PHQ-9 Screening for malignant neoplasm of breast 749150411 Z12.31 - Due for screening mammogram- Patient prefers to wait before ordering Screening for malignant neoplasm of cervix 106166173 Z12.4 - Will obtain outside records for review to determine last Pap, HPV testing [id number] [facility] [address] [place] [address] 07/16/2024 15:41:47 07/17/2024 11:17:10 Contact dermatitis caused by urushiol from [place] poison iris 271396500 L25.5 - Rash consistent with known poison iris exposure- Will treat itching with cetirizine 10 mg daily and rash/infla mmation with triamcinol one ointment- Advised patient to wash all clothes, tools, and other items that have been in contact with the poison iris oil to prevent continuing new exposures- Patient to call if symptoms progress Health Concerns Section Related Observation LastModified by Organization Detai ls LastModified Time None Recorded Concern Status LastModified by Organization Details LastModified Time None Recorded Advance Directives Directive N: Payers Insurance Date Sequence Insurance Name Policy Number Policy Soliz Covered Member ID Soliz Member ID Guarantor Name 10/14/2018 2 *SELF PAY* Star Sanchez 03/08/2018 SLIDING FEE SCHEDULE - DISCOUNT Dilcia Sanchez 10/18/2020 SLIDING FEE SCHEDULE - DISCOUNT Dilcia Sanchez 07/16/2024 1 [employer] (PPO) [id number] Pam Sanchez [id number] Dilcia Sanchez 06/09/2024 1 [facility] - DOS PRIOR TO 2020 (MEDICAID REPLACEMENT - HMO) Dilcia Monique [id number] Dilcia Sanchez Notes Date Note Type Note Provider Name and Address Organization Details Recorded Time 02/22/2021 text/html Anxiety/Depressi onRep orted bypatient.Quality:sym ptoms improved Severity:denies suicidal ideations; does not interfere with activities of daily living Duration:stablizing Onset/Timing:gradual Modifying Factors:counselling; medications as directed Associated Symptoms:denies homicidal ideations; mood good; no crying spells; sleeping wellNotes:doing wellGeneric HPI TemplateReported bypatient.Notes:pt exposed croup through her daughter who is better nowPt feeling sore throat and mild vinicius at night. 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 Malachi Dow MD Attn: Accounting,[address] [place], [address], [facility] 06/21/2021 15:42:11 05/11/2022 text/html Anxiety/Depressi onRep orted bypatient.Quality:sym ptoms improved Severity:denies suicidal ideations; does not interfere with activities of daily living Duration:stablizing Onset/Timing:gradual Modifying Factors:counselling; medications as directed Associated Symptoms:denies homicidal ideations; mood good; no crying spells; sleeping wellNotes:doing well Working in the [facility] Malachi Dow MD Attn: Accounting,[address] [place], [address], [facility] 05/11/2022 16:46:29 06/06/2024 text/html Annual wellness- Establishing care after PCP retired Concerns today- None- States she has a history of bee sting about 10 years ago that caused whole body and especially mouth tingling. Went to ED and thinks she received epinephrine. Had an EpiPen for a year that then . Declines EpiPen Rx today. Cardiovascular risk- HTN: No known FHx.- DM2: No known FHx. No GDM.- HLD: No known FHx.- Personal history of PA, CVA? No- Family history of PA, CVA? No known FHx Infection risk- Prior testing for HIV? Reports negative test in - Prior testing for HepC? Unsure if tested during - History of STIs? No- Declines STI testing- Vaccines due? COVID, flu, Tdap (unsure if gotten during in 2020) Plans for - Mirena placed in 2020 Cancer screenings- Breast cancer: No known FHx. No breast changes.- Cervical cancer: Unsure last Pap, probably 2020. No history of abnormal Pap.- Colon cancer: No known FHx.- Lung cancer: Never smoker LANDON RACHEL MD Attn: Accounting,[address] [place], [address], [facility] 06/06/2024 09:41:46 07/16/2024 text/html Poison iris rash- Was working in yard on Sunday afternoon. Didn't realize the poison iris were back at that point.- Sunday evening, noticed rash pop up on right hand- Since then, has had additional rash on right arm, neck, and right lower back- Has worked outside in the yard one other time since Sunday- Used Benadryl once for itch, which didn't help much- Has been using calamine lotion on rash LANDON RACHEL MD Attn: Accounting,[address] [place], [address], [facility] 07/16/2024 17:49:43 OBGyn Episode Ob Episode Information Episode Created Date Number of Fetuses Patient Bloodtype Patient rh Status Prepregnancy Weight lbs Domestic Partner Domestic Partner Phone Father Name Slot Host Status 06/06/19 25 1 CLOSED Fetus Data First Name Last Name Admitted to NICU Weight (g) Sex Living Outcome Pediatric Complications Fetus ID Race Codes Race Delivery Type 3316.66 4704 M Full Term [id number] Vaginal Gonzalez Calculation Initial Gonzalez Date Initial Exam Date Initial Exam Provider Initial Ultrasound Date Last Menstrual Period Date Ultra Sound Weeks Gestation 0 Eighteen To Twenty Week Gonzalez Update Ultra Sound Date Fundal Height At Umbil Quickening Date Ultra Sound Latest Weeks Gestation Final Gonzalez Confirmed By Final Gonzalez Confirmed Date Final Gonzalez Date Ultra Sound Latest Days Gestation 0 0 Menstrual History Last Menstrual Date Menses Monthly On Bcp Conception Prior Menses Frequency Hcg Plus Date Menarche Onset Age Delivery Information Delivery Date Delivery Type Labor Anesthesia Weeks Gestation Incision Type Labor Labor Length Hrs Delivered By Post Complications Tubal Sterilization Discharge Date Comments 0 Discharge Information Feeding Method Contraceptive Method Maternal HG B and HCT Levels Ob Episode Information Episode Created Date Number of Fetuses Patient Bloodtype Patient rh Status Prepregnancy Weight lbs Domestic Partner Domestic Partner Phone Father Name Slot Host Status 06/06/19 25 1 CLOSED Fetus Data First Name Last Name Admitted to NICU Weight (g) Sex Living Outcome Pediatric Complications Fetus ID Race Codes Race Delivery Type 3175.14 4 M Full Term [id number] Vaginal Gonzalez Calculation Initial Gonzalez Date Initial Exam Date Initial Exam Provider Initial Ultrasound Date Last Menstrual Period Date Ultra Sound Weeks Gestation 0 Eighteen To Twenty Week Gonzalez Update Ultra Sound Date Fundal Height At Umbil Quickening Date Ultra Sound Latest Weeks Gestation Final Gonzalez Confirmed By Final Gonzalez Confirmed Date Final Gonzalez Date Ultra Sound Latest Days Gestation 0 0 Menstrual History Last Menstrual Date Menses Monthly On Bcp Conception Prior Menses Frequency Hcg Plus Date Menarche Onset Age Delivery Information Delivery Date Delivery Type Labor Anesthesia Weeks Gestation Incision Type Labor Labor Length Hrs Delivered By Post Complications Tubal Sterilization Discharge Date Comments 5 Discharge Information Feeding Method Contraceptive Method Maternal HG B and HCT Levels Ob Episode Information Episode Created Date Number of Fetuses Patient Bloodtype Patient rh Status Prepregnancy Weight lbs Domestic Partner Domestic Partner Phone Father Name Slot Host Status 06/06/19 25 1 CLOSED Fetus Data First Name Last Name Admitted to NICU Weight (g) Sex Living Outcome Pediatric Complications Fetus ID Race Codes Race Delivery Type 3316.66 4704 F Full Term [id number] Vaginal Gonzalez Calculation Initial Gonzalez Date Initial Exam Date Initial Exam Provider Initial Ultrasound Date Last Menstrual Period Date Ultra Sound Weeks Gestation 0 Eighteen To Twenty Week Gonzalez Update Ultra Sound Date Fundal Height At Umbil Quickening Date Ultra Sound Latest Weeks Gestation Final Gonzalez Confirmed By Final Gonzalez Confirmed Date Final Gonzalez Date Ultra Sound Latest Days Gestation 0 0 Menstrual History Last Menstrual Date Menses Monthly On Bcp Conception Prior Menses Frequency Hcg Plus Date Menarche Onset Age Delivery Information Delivery Date Delivery Type Labor Anesthesia Weeks Gestation Incision Type Labor Labor Length Hrs Delivered By Post Complications Tubal Sterilization Discharge Date Comments 0 Discharge Information Feeding Method Contraceptive Method Maternal HG B and HCT Levels
--- OUTSIDE RECORDS SUMMARY | 2024-11-08 19:25 | XMS_ITS | Clinical Summary ---
Author Organization [facility] Care Team Providers Care Rubber Attacher Name Role Phone Malachi Dow MD Primary Care Provider Allergies No known active allergies Medications HYDROcodone-acet aminophen ([place]) 5-325 MG Tablet Take by mouth. 02/26/2018 Active sulfamethoxazole -trimethoprim DS (BACTRIM DS, SEPTRA DS) 800-160 MG Tablet TK 1 T PO BID 0 02/25/2018 Active Clindamycin HCl 300 MG Capsule TK ONE C PO Q 6 H X 10 DAYS 0 03/01/2018 Active Active Problems Problem Noted Date Diagnosed Date Cellulitis and abscess of trunk 03/06/2018 Social History Tobacco Use Types Packs/Day Years Used Date Smoking Tobacco: Never Smokeless Tobacco: Never Alcohol Use Standard Drinks/Week Comments No 0 (1 standard drink = 0.6 oz pur e alcohol) Comments No Sex and Gender Information Value Date Recorded Sex Assigned at Not on file Legal Sex Female 7:02 AM CDT Gender Identity Not on file Sexual Orientation Not on file Last Filed Vital Signs Vital Sign Reading Time Taken Comments Blood Pressure 114/58 03/05/2018 9:25 AM CDT Pulse 72 03/05/2018 9:25 AM CDT Temperature 36.3 C (97.4 F) 03/05/2018 9:25 AM CDT Respiratory Rate 16 03/05/2018 9:25 AM CDT Oxygen Saturation 95% 03/05/2018 9:25 AM CDT Inhaled Oxygen Concentration - - Weight 70.4 kg (155 lb 3.2 oz) 03/05/2018 9:25 A M CDT Height 170.2 cm (5' 7) 03/05/2018 9:25 AM CDT Body Mass Index 24.31 03/05/2018 9:25 AM CDT Plan of Treatment Health Maintenance Due Date Last Done Comments Hepatitis C Virus (HCV) Screening 1980 Mammogram 1980 TdaP Immunization 1980 Human Papillomavirus (HPV) Immunization (1 - 3-dose series) 01/27/1995 Hepatitis B Immunization (1 of 3 - 19+ 3-dose series) 01/27/1999 Pap Smear 01/27/2001 Cervical Cancer Screening (CCS) 01/27/2010 HPV/Cotest 01/27/2010 Discussion re Starting/Frequency of Mammograms 2020 SARS-COV-2 Immunization (2023- season) 2024 Influenza Immunization (#1) 2025 Respiratory Syncytial Virus (RSV) Immunization (Adult) (1 - 1-dose 75+ series) 01/27/2055 DTaP/Tdap/Td Immunization Discontinued 2001, 12/24/1985, 11/16/1981, Additional history exists Meningococcal Immunization (ACWY) Aged Out No longer eligible based on patient's age to complete this topic Pneumococcal Immunization Combined Aged Out No longer eligible based on patient's age to complete this topic Rotavirus Immunization Aged Out No lo nger eligible based on patient's age to complete this topic Care Teams Rubber Attacher Relationship Specialty Start Date End Date Malachi Dow MD [address] [facility] [address] [place] [address] PCP - General Internal Medicine 05/31/17
--- OUTSIDE RECORDS SUMMARY | 2024-11-08 19:26 | XMS_ITS | Referral Summary ---
Author Organization [facility] Address [address] [place] [address] Care Team Providers Care Bursar Name Role Phone Malachi Dow MD Primary Care Provider [phone] Encounters Date Type Department Care Team Description 08/27/2024 Results Follow-Up [facility] at [address] [place] [phone] Adamaris Doran NP Throat culture Throat 08/26/2024 12:36 PM CDT - 08/26/2024 11:59 [place] [address] Sore throat Discharge Disposition: Discharge to home or self care 08/26/2024 12:30 PM CDT Office Visit [facility] [place] [address] [place] [phone] Dedra Jackson NP Sore throat (Primary Dx); Pharyngitis, unspecified etiology; Canker sore from Last 3 Months Allergies No known active allergies Medications sertraline (ZOLOFT) 50 mg tablet Take 0.5 tablets (25 mg total) by mouth daily 0 Active levonorgestreL (Mirena) IUD 0 Active predniSONE (DELTASONE) 10 mg tabletIndicatio ns:Poison iris Take 4 tablets days 1-3, take 3 tablets days 4-6, take 2 tablets days 7-9, take 1 tablet days 10-14 32 tablet Active Additional Information Patient not taking.Reported on 08/26/2024 Active Problems No known active problems Social History Tobacco Use Types Packs/Day Years Used Date Smoking Tobacco: Never Smokeless Tobacco: Never Tobacco Cessation:Counseling Given: Not Answered Alcohol Use Standard Drinks/Week Comments Not Currently 0 (1 standard drink = 0.6 oz pur e alcohol) Personal Safety Answer Date Recorded Have you ever been in or are you currently in a harmful physical or emotional relationship or is someone making you feel afraid or unsafe? Denies 02/02/2024 Comments No Sex and Gender Information Value Date Recorded Sex Assigned at Not on file Legal Sex Female 3:22 AM CDT Gender Identity Not on file Sexual Orientation Not on file Last Filed Vital Signs Vital Sign Reading Time Taken Comments Blood Pressure 122/70 08/26/2024 12:13 PM CDT Pulse 81 08/26/2024 12:13 PM CDT Temperature 36.7 C (98.1 F) 08/26/2024 12:13 PM CDT Respiratory Rate 18 08/26/2024 12:13 PM CDT Oxygen Saturation 98% 08/26/2024 12:13 PM CDT Inhaled Oxygen Concentration - - Weight 91.2 kg (201 lb) 08/26/2024 12:13 PM CDT Height 170.2 cm (5' 7) 08/26/2024 12:13 PM CDT Body Mass Index 31.48 08/26/2024 12:13 PM CDT Plan of Treatment Not on file Procedures Procedure Name Priority Date/Time Associated Diagnosis Comments THROAT CULTURE Routine 08/26/2024 12:36 PM CDT Sore throat POCT RAPID STREP Routine 08/26/2024 12:3 1 PM CDT Sore throat from Last 3 Months Results * Throat culture Throat (08/26/2024 12:36 PM CDT) Report Final Report: No growth of pathogens. Comment:Testing performed by : [facility], [address] [facility], [place]., [address] Throat 08/26/2024 12:3 6 PM CDT 08/26/2024 10:03 PM CDT Narrative ROGELIO RUFUS - 08/27/2024 5:43 PM CDT Testing performed by [facility] Microbiology Laboratory ([phone]). Dedra Jackson NP LAB MICROBIOLOGY - GENERAL ORDERABLES Final Result ROGELIO HOOPER [address] Department [place] [address] * POCT rapid strep A (08/26/2024 12:31 PM CDT) Rapid Strep A, POC Negative Negative Swab 08/26/2024 12:3 1 PM CDT Dedra Jackson NP POINT OF CARE TEST ORDERAB LES Final Result from Last 3 Months Insurance [facility] H[facility]PPO Address: [facility] [address] [place] [address] [facility] H[facility]/PPO Address: [facility] [id number] [place] [id number] Care Teams Bursar Relationship Specialty Start Date End Date Malachi Dow MD PCP - General 02/26/18
--- OUTSIDE RECORDS SUMMARY | 2024-11-08 19:26 | XMS_ITS | Clinical Summary ---
Author Organization [facility] Address [address] [place] [address] Care Team Providers Care Cardiac Cath Lab Manager Name Role Phone Malachi Dow MD Primary Care Provider [phone] Allergies No known active allergies Medications sertraline (ZOLOFT) 50 mg tablet Take 0.5 tablets (25 mg total) by mouth daily 0 Active levonorgestreL (Mirena) IUD 0 Active predniSONE (DELTASONE) 10 mg tabletIndicatio ns:Poison iris Take 4 tablets days 1-3, take 3 tablets days 4-6, take 2 tablets days 7-9, take 1 tablet days 10-14 32 tablet 4 Active Additional Information Patient not taking.Reported on 08/26/2024 Active Problems No known active problems Encounters Date Type Department Care Team Description 08/27/2024 Results Follow-Up [facility] [place] [address] Adamaris Doran, FATOU Throat culture Throat 08/26/2024 12:36 PM CDT - 08/26/2024 11:59 PM CDT Hospital Encounter [address] [address] Sore throat Discharge Disposition: Discharge to home or self care 08/26/2024 12:30 PM CDT Office Visit [facility] [place] [address] [address] Dedra Jackson, FATOU Sore throat (Primary Dx); Pharyngitis, unspecified etiology; Canker sore from Last 3 Months Surgical History Surgery Date Site/Laterality Comments OTHER SURGICAL HISTORY No pertinent surgical hx Medical History Medical History Date Comments Depression Social History Tobacco Use Types Packs/Day Years [...] on file Sexual Orientation Not on file Obstetrics History Last Filed Vital Signs Vital Sign Reading [...] 08/26/2024 12:13 PM CDT Plan of Treatment Health Maintenance Due Date Last Done Comments Breast Cancer Screening-Mammogram 1980 Cervical Cancer Screening 1980 Depression Screening 1980 Hepatitis C Screening 1980 Varicella Vaccines (1 of 2 - 13+ 2-dose series) 01/27/1993 Hepatitis B Screening 01/27/1998 Regular Well Visit/Exam 18-64 01/27/1998 Influenza Vaccine (Season Ended) 2025 DTaP/Tdap/Td Vaccine (2 - Td or Tdap) 12/06/2029 12/07/2019 HPV Vaccines Aged Out No longer eligi ble based on patient's age to complete this topic Pneumococcal vaccine <65 Aged Out No longer eligible based on patient's age to complete this topic Procedures Procedure Name Priority Date/Time Associated Diagnosis Comments THROAT CULTURE Routine 08/26/2024 12:36 PM CDT Sore throat POCT RAPID STREP Routine 08/26/2024 12:3 1 PM CDT Sore throat from Last 3 Months Results * Throat culture Throat (08/26/2024 12:36 PM CDT) Report Final Report: No growth of pathogens. Comment:Testing performed by : [facility], [address] [place]., [address] Throat 08/26/2024 12:3 6 PM CDT 08/26/2024 10:03 PM CDT Narrative ROGELIO Villegas 08/27/2024 5:43 PM CDT Testing performed by [facility] Microbiology Laboratory ([phone]). us Dedra Jackson NP LAB MICROBIOLOGY - GENERAL ORDERABLES Final Result ROGELIO [address] Department [place] [address] * POCT rapid strep A (08/26/2024 12:31 PM CDT) Rapid Strep A, POC Negative Negative Swab 08/26/2024 12:3 1 PM CDT us Dedra Jackson NP POINT OF CARE TEST ORDERAB LES Final Result from Last 3 Months Insurance [facility] Care Teams Cardiac Cath Lab Manager Relationship Specialty Start Date End Date Malachi Dow MD PCP - General 02/26/18
--- OUTSIDE RECORDS SUMMARY | 2024-11-08 19:26 | XMS_ITS | Data Portability ---
Author Organization [facility] [address] [place] [address] [place] [address] Care Team Providers Care Credit Director Name Role Phone ROGER AREVALO Primary Care Provider Assessment Encounter Date Assessment Date Assessment LastModified by Organization Details LastModified Time 12/12/2019 12/12/2019 Patient is __37_weeks . Discussed plan. Not available 12/12/2019 14:51:57 12/19/2019 12/19/2019 Patient is __38_weeks . Discussed plan. Not available 12/19/2019 14:22:20 Plan of Treatment Reminders Order Date Submit Date Provider Last Modified By Organization Details Last Modified Time Details Appointments None recorded. Lab test, urine [id number], [address], [place], [address], 0 10:56:46 Referral None recorded. Procedures None recorded. Surgeries None recorded. Imaging None recorded. Medication Orders Mirena 21 mcg/24 hr (up to 8 years) 52 mg intrauteri ne device 2019 Not available 0 15:13:21 Zoloft 50 mg tablet 2019 INTERFACE [id number], [address], [place], [place], [id number], 0 12:05:50 Patient TargetsNo targets recorded. Patient Instructions Encounter Date Encounter Id Patient Instructions Last Modified By Organization Details Last Modified Time 01/27/2020 abstain until mirena placement next week, doing well, normal pp exam continue sertraline [email or web address] Not available 01/27/2020 12:05:27 03/02/2020 [id number] doing well, iud in place f/u wwe Not available 03/02/2020 15:17:36 Reason for Referral None Reported. Results Created Date Observation Date Name Description Value Unit Range Abnormal Flag Note LastModifiedBy Organization Detail LastModifiedTime 12/05/1912/06/2019 antib moshe scree n, serum or plasm a antibody screen, reflex to identificati on NEGATI VE negati ve Not Available [facility] ([facility]) [facility] [address], [place], [address], 12/06/2019 10:58:15 12/05/19 20 12/08/2019 strep tococ cus group B DNA GB specimen source Vagina l/Rect al Not Available [facility] ([facility]) [facility], [place], [address], 12/10/2019 16:07:32 12/05/19 20 12/08/2019 strep tococ cus group B DNA spec type Cultur e Swab Not Available [facility] ([facility]) [address] [place] [address] [address], [place], [address], 12/10/2019 16:07:32 12/05/19 20 12/08/2019 strep tococ cus group B DNA group B strep by PCR DETECT ED not detect ed abnormal Inter preta tion: A posit clemencia resul t indic ates the detec tion of Group B Strep tococ cus DNA but not neces saril y the prese nce of viabl e organ isms; it is presu mptiv e for the prese nce of Group B Strep tococ cus. A negat clemencia resul t does not exclu de the possi bilit y of infec tion since very low level s of micro organ ism or sampl ing error may cause a false negat clemencia resul t. This assay is highl y accur ate, but rare false posit clemencia and false negat clemencia resul ts may occur . Metho dolog y: This resul t was deter mined using the FDA-c leare d BD Max GBS Assay . The BD Max GBS Assay is a quali tativ e in vitro diagn ostic test for the rapid detec tion of Group B Strep tococ cus (GBS) DNA in vagin al/re ctal speci mens from prepa rtum or intra partu m women utili zing real- time PCR. Perfo rmed by [facility], d/b/a Wilma cunha, [address] [place] [address], [place] [address] , Favian Trent ra, DO, Labor atory Direc tor. Not Available [facility]) [facility], [place], [address], 12/10/2019 16:07:32 12/05/19 20 12/10/2019 strep tococ cus group B, cultu re, unspe cifie d speci men specimen source Not Available [facility], [place], [address], 12/10/2019 16:07:32 12/05/19 20 12/10/2019 strep tococ cus group B, cultu re, unspe cifie d speci men culture, group B strep reflexed by PCR See Below No group B strep tococ ci isola elyse. Not Available [facility] [address], [place], [address], 12/10/2019 16:07:32 02/03/20 20 02/05/2020 CT + NG DNA, PCR, unspe cifie d speci men trichomonas vaginalis, aptima (panther) NOT DETECT ED normal DNA testi ng perfo rmed by [employer] elyse Ampli ficat ion (TMA) These resul ts shoul d be inter prete d in light of all clini nayana and labor atory findi ngs. This assay is highl y accur ate, but rare false posit clemencia and negat clemencia resul ts may occur . Posit clemencia resul ts in low preva lence popul ation s may requi re re-ev aluat ion. A negat clemencia resul t does not precl ude a possi ble infec tion due to a speci men inade quacy or sampl ing error . Test perfo rmed by [facility], d/b/a [employer], [address], [place] [address] , Favian Trent ra, DO, Labor atory Direc tor. Not Available [facility] ([facility]) [address], [place], [address], 02/05/2020 10:38:13 02/03/20 20 02/05/2020 CT + NG DNA, PCR, unspe cifie d speci men neisseria gonorrhoeae, aptima NOT DETECT ED normal DNA testi ng perfo rmed by [employer] Ampli ficat ion (TMA) These resul ts shoul d be inter prete d in light of all clini nayana and labor atory findi ngs. This assay is highl y accur ate, but rare false posit clemencia and negat clemencia resul ts may occur . Posit clemencia resul ts in low preva lence popul ation s may requi re re-ev aluat ion. A negat clemencia resul t does not precl ude a possi ble infec tion due to a speci men inade quacy or sampl ing error . Test perfo rmed by [employer] [facility], d/b/a [facility], [address], [place] [address] , Favian Trent ra, DO, Labor atory Direc tor. Not Available [facility]) [address] [facility] [address], [place], [address], 02/05/2020 10:38:13 02/03/20 20 02/05/2020 CT + NG DNA, PCR, unspe cifie d speci men chlamydia trachomatis, aptima NOT DETECT ED normal DNA testi ng perfo rmed by [employer] Ampli ficat ion (TMA) These resul ts shoul d be inter prete d in light of all clini nayana and labor atory findi ngs. This assay is highl y accur ate, but rare false posit clemencia and negat clemencia resul ts may occur . Posit clemencia resul ts in low preva lence popul ation s may requi re re-ev aluat ion. A negat clemencia resul t does not precl ude a possi ble infec tion due to a speci men inade quacy or sampl ing error . Test perfo rmed by [facility], d/b/a Wilma cunha, [address] [facility] [address], [place] [address] , Favian Trent ra, DO, Labor atory Direc tor. Not Available [facility]) [address] [facility] [address], [place], [address], 02/05/2020 10:38:13 02/03/20 20 02/03/2020 pregn zechariah test, urine HCG negati ve Not Available [place] [address], [place], [address], 02/03/2020 10:35:02 02/03/20 20 02/03/2020 pregn zechariah test, urine HCG negati ve Not Available [place] [address], [place], [address], 02/03/2020 10:33:51 Result Notes None recorded. Problems Name Problem SNOMED Code Status Onset Date Resolution Date Notes Provider Name and Address Organization Details Recorded Time Normal pregnanc y in multigra maeve 37552224152 4106 Active 2019 Encounte r for supervis ion of other normal pregnanc y, 2nd trimeste r;Record ed Elsewher e: No Locat ion: [facility] ource: EHR Collar Setter aura: N Practi ce ID: 0001 Foster lable Time: 09:45:00 AM Not Available [facility] 0 17:43:43 Antenata l screenin g Active 2019 Encounte r for other specifie d antenata l screenin g;Record ed Elsewher e: No Locat ion: [facility] S ource: EHR Collar Setter aura: N Practi ce ID: 0001 Foster lable Time: 09:45:00 AM Not Available [facility] 0 17:43:43 Pain of breast 03045621 Active 2013 Mastodyn ia;Recor ded Elsewher e: No Locat ion: [place] S ource: EHR Collar Setter aura: N Practi ce ID: 0001 Foster lable Time: 09:45:00 AM Not Available [facility] 0 17:43:44 Pregnanc y detectio n examinat ion Active 2019 Encounte r for pregnanc y test, result positive ;Recorde d Elsewher e: No Locat ion: [facility] nahed [facility] S ource: EHR Collar Setter aura: N Practi ce ID: 0001 Foster lable Time: 01:15:00 PM Not Available [facility] 0 17:43:44 Speciali zed medical examinat ion Active 2013 Gynecolo gical Examinat ion;Regan rded Elsewher e: No Locat ion: [facility] S ource: EHR Collar Setter aura: N Practi ce ID: 0001 Foster lable Time: 01:00:00 PM Not Available [facility] 0 17:43:44 Insertio n of intraute rine contrace ptive device Active 2014 INSERTIO N OF IUD;Regan rded Elsewher e: No Locat ion: [facility] S ource: EHR Collar Setter aura: N Practi ce ID: 0001 Foster lable Time: 03:00:00 PM Not Available [facility] 0 17:43:[address] Concept Active 2015 Encntr for general adult medical exam w/o abnormal findings ;Recorde d Elsewher e: No Locat ion: [facility] S ource: EHR Collar Setter aura: N Eileenti ce ID: 0001 Foster lable Time: 09:30:00 AM Not Available [facility] 0 17:43:44 Adult health examinat ion Active 2014 ROUTINE MEDICAL EXAM;Rec orded Elsewher e: No [facility] S ource: EHR Collar Setter aura: N Eileenti ce ID: 0001 Foster lable Time: 03:15:00 PM Not Available [facility] 0 17:43:44 Dysfunct ional uterine bleeding Active 2014 Unspecif ied disorder s of menstrua tion and other abnormal bleeding from female genital tract;Re corded Elsewher e: No Locat ion: [place] S ource: EHR Collar Setter aura: N Eileenti ce ID: 0001 Foster lable Time: 03:45:00 PM Not Available [facility] 0 17:43:44 Leukocyt osis 694896998 Active 2012 LEUKOCYT OSIS NOS;Regan rded Elsewher e: No Locat ion: [facility] nahed [facility] S ource: EHR Collar Setter aura: N Eileenti ce ID: 0001 Foster lable Time: 09:45:00 AM Not Available [facility] 0 17:43:44 Screenin g for malignan t neoplasm of cervix Active 2013 Screenin g for malignan t neoplasm s of the cervix;R ecorded Elsewher e: No Locat ion: [facility] S ource: EHR Collar Setter aura: N Practi ce ID: 0001 Foster lable Time: 01:00:00 PM Not Available [facility] 0 17:43:44 Pregnanc y test negative 908194340 Active 2013 Pregnanc y examinat ion or test, negative result;R ecorded Elsewher e: No Locat ion: [place] [facility] S ource: EHR Collar Setter aura: N Eileenti ce ID: 0001 Foster lable Time: 09:45:00 AM Not Available [facility] 0 17:43:44 Vaginiti s and vulvovag initis Active 2012 Vaginiti s;Record ed Elsewher e: No Locat ion: [place] [facility] [facility] S ource: EHR Collar Setter aura: N Practi ce ID: 0001 Foster lable Time: 09:45:00 AM Not Available [facility] 0 17:43:[address] Concept Active 2015 Encntr for ob/gyn nurse exam (general ) (routine ) w/o abn findings ;Recorde d Elsewher e: No Locat ion: [place] [facility] S ource: EHR Collar Setter aura: N Eileenti ce ID: 0001 Foster lable Time: 09:30:00 AM Not Available [facility] 0 17:43:44 Uses IUD (intraut erine device) contrace ption 124072933 Active 2014 Surveill ance of intraute rine contrace ptive device;R ecorded Elsewher e: No [facility] our[facility]: EHR Collar Setter aura: N Eileenti ce ID: 0001 Foster lable Time: 03:45:00 PM Not Available [facility] 0 17:43:45 Removal of intraute rine device Active 2014 REMOVAL OF IUD;Regan rded Elsewher e: No [facility] S ource: EHR Collar Setter aura: N Practi ce ID: 0001 Foster lable Time: 03:00:00 PM Not Available [facility] 0 17:43:45 Pregnanc y 60170261 Completed 201903/02/2020 Nafisa Bustamante null, [facility] 0 15:09:47 Advanced maternal age 733320224 Active 2019 Gatito garza, [facility] 0 14:28:07 Problem Notes None recorded. Procedures Surgical History Date Name Laterality Status Provider Name and Address Organization Details Recorded Time 0 IUD Insertion completed Katia Olivares CNM [address], [place], [address], [place] [facility] 02/03/2020 10:41:51 9 Date of Last Pap Smear completed Nafisa Bustamante [facility] 08/20/2019 14:49:13 Imaging Results None recorded. Procedure Notes None recorded. Medical Equipment None Reported. Allergies No known drug allergies Medications Name Sig Start Date Stop Date Status Note LastModified by Organization Details LastModified Time sertralin e hcl 50 mg tabs 01/26 completed Not Available Not Available Not Available Mirena 21 mcg/24 hr (up to 8 years) 52 mg intrauter ine device mirena inserted 2019 active Not Available Not Available Not Avai lable prednison e 10 mg tablet 08/19 completed Not Available Not Available Not Available ondansetr on HCl 4 mg tablet Take one tablet by oral route every 6 hours as needed for nausea 08/19 completed Not Available Not Available Not Available prednison e 20 mg tablet 08/19 completed Not Available Not Available Not Available triamcino lone acetonide 0.1 % topical cream 08/19 completed Not Available Not Available Not Available cephalexi n 500 mg capsule 08/19 completed Not Available Not Available Not Available Terazol 7 0.4 % vaginal cream insert 1 applicat orful by vaginal route every day for 7 days at bedtime 11/18 completed Prescrib ed Elsewher e: No [facility] By: [email or web address] tz Encou nter DateTime : 11/13/19 13 09:45:00 AM Not Available Not Available Not Available sertralin e 50 mg tablet Take 1 tablet every day by oral route. active Not Available Not Available No t Available Tindamax 500 mg tablet take 2 Tablet (1G) by oral route every day for 5 days with food 11/18 completed Prescrib ed Elsewher e: No Locat ion: [facility] M odify By: cmedical Encount er DateTime : 11/19/19 13 08:56:15 AM Not Available Not Available Not Available Boostrix Tdap 2.5 Lf unit-8 mcg-5 Lf/0.5 mL intramusc ular syringe 02/02 completed Not Available Not Available Not Available 02/02 completed Not Available Not Available Not Available Triveen-D uo DHA 29 mg-1 mg-400 mg oral pack take 1 by Oral route 01/26 completed Not Available Not Available Not Available Vitals Date Recorded Body height Body mass index (BMI) Body weight Systolic And Diastolic Provider Name and Address Organization Details Last Updated DateTime 12/12/2019 168.28 cm 31.6 kg/m2 50258.696 89 g 110/71 mm[Hg] Nafisa Bustamante [facility] 12/12/2019 14:31:43 Date Recorded Body height Body mass index (BMI) Body weight Systolic And Diastolic Provider Name and Address Organization Details Last Updated DateTime 12/19/2019 168.28 cm 31.6 kg/m2 08993.696 89 g 121/74 mm[Hg] Nafisa Bustamante [facility] 12/19/2019 14:14:44 Date Recorded Body height Body mass index (BMI) Body weight Systolic And Diastolic Provider Name and Address Organization Details Last Updated DateTime 01/27/2020 168.28 cm 28.4 kg/m2 08154.849 49 g 137/78 mm[Hg] Nafisa Bustamante [facility] 01/27/2020 11:10:35 Date Recorded Body height Body mass index (BMI) Systolic And Diastolic Provider Name and Address Organization Details Last Updated DateTime 02/03/2020 168.28 cm 28.7 kg/m2 133/86 mm[Hg] Elizabeth Aden [facility] 02/03/2020 10:29:45 Date Recorded Body weight Provider Name an d Address Organization Details Last Updated DateTime 02/03/2020 01384.57050 g Nafisa Bustamante [facility] 03/02/2020 15:09:44 Date Recorded Body height Body mass index (BMI) Body weight Systolic And Diastolic Provider Name and Address Organization Details Last Updated DateTime 03/02/2020 168.28 cm 29.2 kg/m2 77590.811 34 g 146/76 mm[Hg] Nafisa Bustamante [facility] 03/02/2020 15:07:57 Social History Question Answer Notes LastModified by [employer] Details LastModified Time Tobacco Smoking Status Never Smoker Not Available [facility] 03/09/2020 03:28:11 If You Are , What Was Your Level Of Alcohol Consumption Prior To ? None [id number] Information not available 03/09/2020 What Was The Date Of Your Most Recent Tobacco Screening? 03/02/2020 [email or web address] Information not available 03/02/2020 How Much Tobacco Do You Smoke? No [id number] Information not available 03/09/2020 Smoking Pre- No [email or web address] Information not available 08/20/2019 Sex: Unknown Functional Status Question Answer Note LastModified by [email or web address] Details LastModified Time Do you or have you ever used smokeless tobacco? Never used smokeless tobacco [id number] Information not available 03/09/2020 Do you or have you ever used e-cigarettes or vape? Never used electronic cigarettes [id number] Information not available 03/09/2020 What is your exercise level? Moderate [id number] Information not available 03/09/2020 Mental Status None recorded. Family History Nothing Reported. Medical History Condition Response Anxiety Disorder Y Depression/ depression Y Gynecological History Statement/Question Response Date of Last Pap Smear 10/02/2018 Current Control Method IUD Desired Control Method IUD Date of LMP 03/25/2019 LMP Definite Obstetrics History GPAL:G 3 P 4 0 0 4 Type Value Full Term 4 Living 4 Total 3 Past Encounters Encounter ID Performer Location Encounter Start Date Encounter Closed Date Diagnosis/Indication Diagnosis SNOMED-CT Code Diagnosis ICD10 Code Diagnosis Note [id number] Deepak Sunshine MD [place] [address] [address] 08/20/2019 09:49:18 08/22/2019 17:03:15 screening for malformation 941430839 Z36.3 [id number] Katia Olivares CNM [place] [address],[place] [address] 08/20/2019 10:33:11 08/21/2019 15:46:40 [id number] Abi Tellez MD [place] [address],[place] [address] 09/15/2019 09:30:07 09/15/2019 09:57:14 Normal 44876030 Z34.92 [id number] Lorna Hobson [facility] [address],[place] [address] 10/06/2019 09:41:47 10/06/2019 10:40:31 Routine care 421658657 Z34.92 [id number] Katia Olivares [facility] [address],[place] [address] 10/24/2019 10:54:58 10/24/2019 12:29:22 Routine care 790851081 Z34.93 [id number] Lorna Hobson [facility] [address],[place] [address] 11/06/2019 15:40:12 11/06/2019 16:16:10 Routine care 998273621 Z34.92 [id number] Katia Olivares [facility] [address],[place] [address] 11/21/2019 14:45:42 11/21/2019 15:50:58 Routine care 750963601 Z34.93 [id number] Katia Olivares [facility] [address],[place] [address] 12/05/2019 12:11:36 12/05/2019 13:08:31 Routine care 494792767 Z34.93 [id number] Katia Olivares [facility] [address],[place] [address] 12/12/2019 14:22:10 12/12/2019 14:54:29 Routine care 759607487 Z34.93 [id number] Katia Olivares [facility] [address],[place] [address] 12/19/2019 13:50:43 12/19/2019 15:20:13 Routine care 143807986 Z34.93 [id number] Katia Olivares CNM [place] [address] [address] 01/27/2020 10:43:29 01/27/2020 12:20:07 care 668817788 Z39.2 Anxiety 03835531 F41.9 [id number] Katia Olivares CNM [place] [address],[place] [address] 02/03/2020 10:17:39 02/03/2020 11:27:50 Insertion of intrauterine contraceptive device 45962674 Z30.430 Contracept ion care management 567953529 Z30.9 [id number] Katia Olivares CNM [place] [address] [address] 03/02/2020 14:51:29 03/02/2020 15:36:41 IUD check 387024385 Z30.431 Health Concerns Section Related Observation LastModified by Organization Detai ls LastModified Time None Recorded Concern Status LastModified by Organization Details LastModified Time None Recorded Advance Directives Directive None Recorded Payers Insurance Date Sequence Insurance Name Policy Number Policy Soliz Covered Member ID Soliz Member ID Guarantor Name 02/28/2020 1 [facility] [id number] Pam Sanchez [id number] Dilcia Sanchez Notes Date Note Type Note Provider Name and Address Organization Details Recorded Time 01/27/2020 text/html VisitReported bypatient.Notes:pp visit, no anxiety or depression, wants mirena has had it in the past, and baby girl doing well [address] [place], [address], [facility] 01/27/2020 12:05:57 02/03/2020 text/html Patient presents for IUD insertion. reviewed se including infection, perforation, cosent signed, had iud previously [address] [place], [address], [place] [facility] 02/03/2020 15:13:39 03/02/2020 text/html Patient presents for IUD check, strings long would like trimmed no other issues Katia Olivares CNM [address], [place], [address], [place] [facility] 03/02/2020 15:18:17 OBGyn Episode Ob Episode Information Episode Created Date Number of Fetuses Patient Bloodtype Patient rh Status Prepregnancy Weight lbs Domestic Partner Domestic Partner Phone Father Name Nutritionist Public Health Status 08/22/19 20 1 B Positive CLOSED Fetus Data First Name Last Name Admitted to NICU Weight (g) Sex Living Outcome Pediatric Complications Fetus ID Race Codes Race Delivery Type 3543.68 75 F true Full Term 554 Vaginal Delivery Gonzalez Calculation Initial Gonzalez Date Initial Exam Date Initial Exam Provider Initial Ultrasound Date Last Menstrual Period Date Ultra Sound Weeks Gestation 12/26/2019 08/22/2019 05/26/2019 03/25/2019 9 Eighteen To Twenty Week Gonzalez Update Ultra Sound Date Fundal Height At Umbil Quickening Date Ultra Sound Latest Weeks Gestation Final Gonzalez Confirmed By Final Gonzalez Confirmed Date Final Gonzalez Date Ultra Sound Latest Days Gestation 0 [email or web address] 08/22/2019 12/30/19 20 0 Pre- Flowsheet Flowsheet Date 08/20/2019 Graham Score Blood Edema Fundus Height Fundus Units Glucose Ketones Leukocytes Nitrite Labor Signs Protein Cervic Dilation Cervic Effacement Cervic Station Type Weight in lbs Pre/Post Dialysis Refused BP Diastolic BP Location Tested BP Systolic BP Type Fetus Heart Rate Present Fetus Movement Comments Flowsheet Date 08/20/2019 Graham Score Blood Edema Fundus Height Fundus Units Glucose Ketones Leukocytes Nitrite Labor Signs Protein Cervic Dilation Cervic Effacement Cervic Station neg none trace Type Weight in lbs Pre/Post Dialysis Refused Weight 168.534122953272 BP Diastolic BP Location Tested BP Systolic BP Type 73 112 Fetus Heart Rate Present Fetus Movement A Yes Comments OB [id number], EFW 63%, doing w ell on zoloft feel as if mood has improved and will continue to take daily Flowsheet Date 09/15/2019 Graham Score Blood Edema Fundus Height Fundus Units Glucose Ketones Leukocytes Nitrite Labor Signs Protein Cervic Dilation Cervic Effacement Cervic Station none 26 cm trace Type Weight in lbs Pre/Post Dialysis Refused Weight 176.484678315291 BP Diastolic BP Location Tested BP Systolic BP Type 72 R arm 111 sitting Fetus Heart Rate Present A 140 Fetus Movement A Yes Comments Glucose negative. bc , rma N o complaints. Expecting baby girl, plans to breastfeed and likely wants Mirena. GCT next visit Flowsheet Date 06/23/2019 Graham Score Blood Edema Fundus Height Fundus Units Glucose Ketones Leukocytes Nitrite Labor Signs Protein Cervic Dilation Cervic Effacement Cervic Station trace 12 trace Type Weight in lbs Pre/Post Dialysis Refused Weight 151.309222221345 BP Diastolic BP Location Tested BP Systolic BP Type Fetus Heart Rate Present A 147 Fetus Movement A No Comments This patient is a 3 para 2001 at 12 weeks gestation who presents for initial care. She declined any genetic screening. She is advanced maternal age. She has no other risk factors. She has a child with autism. Flowsheet Date 07/25/2019 Graham Score Blood Edema Fundus Height Fundus Units Glucose Ketones Leukocytes Nitrite Labor Signs Protein Cervic Dilation Cervic Effacement Cervic Station none trace Type Weight in lbs Pre/Post Dialysis Refused Weight 168.003214669616 BP Diastolic BP Location Tested BP Systolic BP Type 74 109 sitting Fetus Heart Rate Present A 142 Fetus Movement A Yes Comments OB [id number] pt states that aguilar ving leg pain, depression. and pt going to counseling at home now from work due to covid. Pt does not have thoughts of harming herself or others, Start zoloft, reviewed se risks and benefits, if any suicidal thoughts to ED immediately. may cause nausea, call if any side effects. recom individual counseling if able 3 week f/u Flowsheet Date 10/06/2019 Graham Score Blood Edema Fundus Height Fundus Units Glucose Ketones Leukocytes Nitrite Labor Signs Protein Cervic Dilation Cervic Effacement Cervic Station 29 trace Type Weight in lbs Pre/Post Dialysis Refused Weight 178.659172066908 BP Diastolic BP Location Tested BP Systolic BP Type 69 104 sitting Fetus Heart Rate Present A 136 Fetus Movement A Yes Comments *Nextgen down. Unable to chetan stephane history.* 1 hour gtt today. Flowsheet Date 10/24/2019 Graham Score Blood Edema Fundus Height Fundus Units Glucose Ketones Leukocytes Nitrite Labor Signs Protein Cervic Dilation Cervic Effacement Cervic Station 29 Type Weight in lbs Pre/Post Dialysis Refused Weight 183.506252873263 BP Diastolic BP Location Tested BP Systolic BP Type 73 112 Fetus Heart Rate Present A 131 Present Fetus Movement A Yes Comments doing well physically and em otionally, precautions, f/u 2 weeks ob Flowsheet Date 11/06/2019 Graham Score Blood Edema Fundus Height Fundus Units Glucose Ketones Leukocytes Nitrite Labor Signs Protein Cervic Dilation Cervic Effacement Cervic Station 33 trace Type Weight in lbs Pre/Post Dialysis Refused Weight 187.095432485137 BP Diastolic BP Location Tested BP Systolic BP Type 69 L arm 113 sitting Fetus Heart Rate Present A 142 Fetus Movement A Yes Comments Pt doing well. Having a girl Storm Alicia. Flowsheet Date 11/21/2019 Graham Score Blood Edema Fundus Height Fundus Units Glucose Ketones Leukocytes Nitrite Labor Signs Protein Cervic Dilation Cervic Effacement Cervic Station neg none 34 trace Type Weight in lbs Pre/Post Dialysis Refused Weight 190.362988072321 BP Diastolic BP Location Tested BP Systolic BP Type 76 118 Fetus Heart Rate Present A 145 Present Fetus Movement A Yes Comments gbs next visit, doing well o n zoloft, no complaints does not plan epidural. naming the baby storm Flowsheet Date 12/05/2019 Graham Score Blood Edema Fundus Height Fundus Units Glucose Ketones Leukocytes Nitrite Labor Signs Protein Cervic Dilation Cervic Effacement Cervic Station neg none 37 trace Type Weight in lbs Pre/Post Dialysis Refused Weight 193.31535211050 BP Diastolic BP Location Tested BP Systolic BP Type 74 117 Fetus Heart Rate Present A 130 Fetus Movement A Yes Comments gbs done, labor rpecautions Flowsheet Date 12/12/2019 Graham Score Blood Edema Fundus Height Fundus Units Glucose Ketones Leukocytes Nitrite Labor Signs Protein Cervic Dilation Cervic Effacement Cervic Station neg none 37 trace Type Weight in lbs Pre/Post Dialysis Refused Weight 197.726874157370 BP Diastolic BP Location Tested BP Systolic BP Type 71 110 Fetus Heart Rate Present A 145 Fetus Movement A Yes Comments labor precautions, declined cervical exam Flowsheet Date 12/19/2019 Graham Score Blood Edema Fundus Height Fundus Units Glucose Ketones Leukocytes Nitrite Labor Signs Protein Cervic Dilation Cervic Effacement Cervic Station neg trace 37 trace 2cm 50% -2 Type Weight in lbs Pre/Post Dialysis Refused Weight 197.991054231668 BP Diastolic BP Location Tested BP Systolic BP Type 74 121 Fetus Heart Rate Present A 143 Present Fetus Movement A Yes Comments patient is having some swell ing, labor precautions Flowsheet Date 01/27/2020 Graham Score Blood Edema Fundus Height Fundus Units Glucose Ketones Leukocytes Nitrite Labor Signs Protein Cervic Dilation Cervic Effacement Cervic Station Type Weight in lbs Pre/Post Dialysis Refused Weight 177.557665339819 BP Diastolic BP Location Tested BP Systolic BP Type 78 137 Fetus Heart Rate Present Fetus Movement Comments Flowsheet Date 02/03/2020 Graham Score Blood Edema Fundus Height Fundus Units Glucose Ketones Leukocytes Nitrite Labor Signs Protein Cervic Dilation Cervic Effacement Cervic Station Type Weight in lbs Pre/Post Dialysis Refused Weight 179.413869824907 BP Diastolic BP Location Tested BP Systolic BP Type 86 133 Fetus Heart Rate Present Fetus Movement Comments Flowsheet Date 03/02/2020 Graham Score Blood Edema Fundus Height Fundus Units Glucose Ketones Leukocytes Nitrite Labor Signs Protein Cervic Dilation Cervic Effacement Cervic Station Type Weight in lbs Pre/Post Dialysis Refused Weight 182.705100013438 BP Diastolic BP Location Tested BP Systolic BP Type 76 146 Fetus Heart Rate Present Fetus Movement Comments Menstrual History Last Menstrual Date Menses Monthly On Bcp Conception Prior Menses Frequency Hcg Plus Date Menarche Onset Age 1103/25/2019 Genetic Screening And Infection History Question Response Note Patient's Age Will Be 35 Years Or Older At Estim ated Date of Delivery true Delivery Information Delivery Date Delivery Type Labor Anesthesia Weeks Gestation Incision Type Labor Labor Length Hrs Delivered By Post Complications Tubal Sterilization Discharge Date Comments 0 Augmen elyse 38.6 false [id number] Discharge Information Feeding Method Contraceptive Method Maternal HG B and HCT Levels Ob Episode Information Episode Created Date Number of Fetuses Patient Bloodtype Patient rh Status Prepregnancy Weight lbs Domestic Partner Domestic Partner Phone Father Name Nutritionist Public Health Status 08/20/19 20 1 CLOSED Fetus Data First Name Last Name Admitted to NICU Weight (g) Sex Living Outcome Pediatric Complications Fetus ID Race Codes Race Delivery Type 3203.26 6704 M Full Term 462 Vaginal Delivery Gonzalez Calculation Initial Gonzalez Date Initial Exam [...] Complications Tubal Sterilization Discharge Date Comments 5 40 Discharge Information Feeding Method Contraceptive Method Maternal HG B and HCT Levels Ob Episode Information Episode Created Date Number of Fetuses Patient Bloodtype Patient rh Status Prepregnancy Weight lbs Domestic Partner Domestic Partner Phone Father Name Nutritionist Public Health Status 08/20/19 20 1 CLOSED Fetus Data First Name Last Name Admitted to NICU Weight (g) Sex Living Outcome Pediatric Complications Fetus ID Race Codes Race Delivery Type 3316.66 4704 M Full Term 461 Vaginal Delivery Gonzalez Calculation Initial Gonzalez Date Initial Exam [...] Complications Tubal Sterilization Discharge Date Comments 0 39 lost all amniotic fluid Discharge Information Feeding Method Contraceptive Method Maternal HG B and HCT Levels Ob Episode Information Episode Created Date Number of Fetuses Patient Bloodtype Patient rh Status Prepregnancy Weight lbs Domestic Partner Domestic Partner Phone Father Name Nutritionist Public Health Status 01/06/20 20 1 DELETED Gonzalez Calculation Initial Gonzalez Date Initial Exam [...] Complications Tubal Sterilization Discharge Date Comments 0 38 +GBS Discharge Information Feeding Method Contraceptive Method Maternal HG B and HCT Levels
--- NOTE | 2024-11-08 19:32 | ED_ITS ---
HPI - Skin/Abscess/Foreign Bdy General Chief complaint: Skin/Abscess/Foreign Body Stated complaint: Rash [facility] to [facility] with complaints of poison katya rash to both hands, chest, left upper arm, and face that began over the last couple days. Patient noted that she was working in [place] and believe she came in contact with poison katya and does usually have trouble with this. Patient reports applying the topical cream that she normally uses but noted this area is spreading fast over the course of today. Patient also applied calamine lotion to the area without relief of itching. Denies any swelling to face or lips. Related Data Home Medications ?Medication ?Instructions ?Recorded ?Confirmed ?Last Taken ?Type MIRENA 11/08/24 Unknown History Allergies Allergy/AdvReac Type Severity Reaction Status Date / Time No Known Allergies Allergy Verified 11/08/24 19:33 Review of Systems Constitutional: Constitutional: Reports as per HPI, Denies chills, Denies fatigue, Denies fever(s) and Denies weakness Eyes: Eyes: Reports no additional eye complaints ENT: Reports as per HPI Cardiovascular: Cardiovascular: Reports no additional cardiovascular complaints Respiratory: Respiratory: Reports no additional respiratory complaints Gastrointestinal: Gastrointestinal: Reports no additional gastrointestinal complaints Genitourinary: Genitourinary: Reports no additional female genitourinary complaints Musculoskeletal: Musculoskeletal: Reports no additional musculoskeletal complaints Integumentary/Breasts: Skin/Breast: Reports as per HPI, Reports pruritus and Reports rash Comments: Both hands, left upper arm, face, chest Neurologic: Reports as per HPI Psychiatric: Psychiatric: Reports no additional psychiatric complaints Endocrine: Endocrine: Reports no additional endocrine complaints Hematologic/Lymphatic: Hematologic/Lymphatic: Reports no additional neal tologic/lymphatic complaints Allergic/Immunologic: Allergic/Immunologic: Reports no additional allergic/immunologic complaints [facility] Family History Family History (Updated 12/05/19 @ 12:29 by Cary Grady RN) Other Unknown family medical history Social History Social History Smoking status: Never smoker Substance use: never Spiritual care concerns: No Exam Const: General: healthy appearing and no acute distress Nutritional Appearance: well nourished Orientation/consciousness: patient oriented x3 Limitations: no limitations HENMT: Head: normal to inspection Face and sinus: normal facial exam Mouth: Yes Normal oral and palatal mucosa present and Yes lip normal Throat: posterior oropharynx normal Eyes: Conjunctivae: conjunctivae normal EOM: EOMs intact bilaterally Direct Ophthalmoscopy: no photophobia Resp: Effort & Inspection: normal respiratory effort Auscultation: clear to auscultation bilaterally Cardio: Rate: regular rate Rhythm: regular rhythm Skin: General skin exam: normal color Rashes: rash noted Wounds: no wounds Other: vesicular rash noted to bilateral hands, left upper arm, neck and chest, upper lip, right cheek, and forehead Neuro: General: patient oriented x3 Speech: normal speech Gait exam (Neuro): Normal gait present Psych: Mental Status: mental status grossly normal Affect: normal affect Attitude: cooperative Course Course Level of Care: Express Care Visit MDM - Skin/Abscess/Foreign Bdy MDM Narrative Medical decision making narrative: spoke with patient about symptoms since she does have these areas on her face and near her mouth eyes would recommend injection here at the urgent care. Start oral steroids tomorrow. Discharge instructions reviewed with patient, as well as provided in writing per nursing staff. The instructions also include specific and strict return/GO TO THE ER as well as f/u information. All questions have been answered, and the patient deny any further questions with discharge and discharge plan. Differential Diagnosis Differential diagnosis: Likely cellulitis, insect bites, impetigo, contact dermatitis and other ( Poison katya dermatitis) Medical Records Attestation: I reviewed the patient's medical records. Discharge Plan Discharge Clinical Impression: Allergic dermatitis due to poison katya Patient Disposition: Home Condition: Stable Instructions: Antibiotic Form, Poison Katya (ED), Cold Compress or Soak (ED) Additional Instructions: The most important part of your care is follow up with Primary care provider. Take Benadryl 25-50 mg every 6 hours as needed for itching Take Pepcid 20mg daily for 7 days Take the steroids starting tomorrow Around noon since your given an injection of steroid here at the express care. Avoid hot showers, Take cool showers. Apply a good moisturizing lotion to the skin. Return to the ER for new or worsening symptoms such as shortness of breath. Patient Language: Cook Islander Prescriptions: New prednisone 10 mg tablet 10 mg PO DIRECTED Qty: 18 0RF Rx Instructions: take 3 tablets for 3 days, 2 tablets for 3 days, 1 tablet for 3 days. triamcinolone acetonide 0.1 % cream 1 applic topical TID Qty: 80 0RF No Action LAURIE Follow-up/Referrals: Frederick,Yulisa Whipple MD [Primary Care Provider] - Time of Disposition: 19:44
[2024-11-08 19:33] VITALS: BP 142/80; PULSE 76; RESP 18; TEMP 36.2; O2SAT 100
== END 2024-11-08 20:00 | disposition home or self-care (01) ==
PROVIDERS: Emergency Provider Nurse Practitioner Family; PCP Family Medicine
DX: L23.7 Allergic contact dermatitis due to plants, except food (principal); F32.A Depression, unspecified
CPT/HCPCS: 96372; 99213; G0463; J2919

== ENCOUNTER 2025-02-28 19:44 | Emergency (ER) | payer OTHER, SELFPAY ==
--- OUTSIDE RECORDS SUMMARY | 2025-02-28 19:50 | XMS_ITS | Data Portability ---
Author Organization [facility] Raman HERNANDEZ Address [address] [facility] [place] [address] Care Team Providers Care Landscape Architecture Professor Name Role Phone LANDON RACHEL [facility] Assessment No assessment recorded. Plan of Treatment Reminders Order Date Submit Date Provider Last Modified By Organization Details Last Modified Time Details Appointments None recorded. Lab HbA1c (hemoglob in A1c), blood 2024 025 [facility], [address] [place] [address], [address], 5 03:36:31 lipid panel, serum 2024 025 [facility], [address] [place] [address], [address], 5 03:36:29 CMP, serum or plasma 2024 025 [facility], [address] [place] [address] 2, [place], [address], 5 03:36:30 CBC 2024 025 [facility], [address] [place] [address] 2, [place], [address], 5 03:36:32 lipid panel, serum 2022 023 [facility], [address] [place] [address], [address], [address], 3 15:23:11 CMP, serum or plasma 2022 023 [facility], [address], [address], [place], [address], 3 15:23:10 CBC w/ auto diff 2022 023 [facility], [address], [address], [place], [address], 3 15:23:10 TSH, ultra-sen sitive, serum 2022 023 [facility] VILL[facility]ER[facility], [address], [address], [place], [address], 3 15:23:10 lipid panel, serum 2021 022 [facility] VILL[facility], [address], [address], [place], [address], 2 15:06:53 CMP, serum or plasma 2021 022 [facility] VILLAFUERTE, [address]anny [address], [address], [place], [address], 2 15:07:08 vitamin D, 25-hydrox y, total, serum 2021 022 [facility], [address]anny [address], [address], [place], [address], 2 15:06:52 CBC w/ auto diff 2021 022 [facility] VILLAFUERTE, Fanny [address], [address], [place], [address], 2 15:07:08 TSH, ultra-sen sitive, serum 2021 022 [facility], [address], [address], [place], [address], 15:07:08 Referral None recorded. Procedures None recorded. Surgeries None recorded. Imaging None recorded. Medication Orders Zyrtec 10 mg tablet 2024 025 [id number], [address], [place], [place], [id number], 5 16:20:20 triamcino lone acetonide 0.1 % topical ointment 2024 025 [facility][id number], [address], [place], [place], [id number], 5 16:20:25 sertralin e 25 mg tablet 2022 023 [facility][id number], [address], [place], [place], [id number], 5 08:58:38 sertralin e 25 mg tablet 2020 021 [facility] #[id number], [address], [place], [place], [id number], 5 08:58:38 Patient TargetsNo targets recorded. Patient Instructions Encounter Date Encounter Id Patient Instructions Last Modified By Organization Details Last Modified Time 02/22/2021 [id number] anxiety disorder : care instructions ssuthan Not available 02/22/2021 15:34:25 06/21/2021 [id number] anxiety disorder : care instructions ssuthan Not available 06/21/2021 15:06:50 learning about healthy weight ssuthan Not available 06/21/2021 15:06:50 05/11/2022 [id number] A healthy lifestyle: care instructions ssuthan Not available 05/11/2022 15:22:58 anxiety disorder : care instructions ssuthan Not available 05/11/2022 15:22:59 06/06/2024 [id number] A healthy lifestyle: care instructions Not available 06/06/2024 09:33:08 Reason for Referral [...] A Ag, POC Negat clemencia Negat clemencia [facility] Not Available Not Available 07/16/2024 16:09:04 02/02/20 24 02/02/2024 SARS- CoV+S ARS-C oV-2 (COVI D-19) Ag [Pres ence] in Respi rator y syste m speci men by Rapid immun oassa y influenza B Ag, POC Negati ve text: negati ve Influ efrain B Ag, POC Negat clemencia Negat clemencia [facility] Not Available Not Available 07/16/2024 16:09:04 02/02/20 24 02/02/2024 SARS- CoV+S ARS-C oV-2 (COVI D-19) Ag [Pres ence] in Respi rator y syste m speci men by Rapid immun oassa y covid-19 Ag POC Presum ptive Negati ve text: presum ptive negati ve, invali d COVID -19 Ag POC Presu mptiv e Negat clemencia Presu mptiv e Negat clemencia, Inval id [facility] Not Available Not Available 07/16/2024 16:09:04 02/02/20 24 02/02/2024 SARS- CoV+S ARS-C oV-2 (COVI D-19) Ag [Pres ence] in Respi rator y syste m speci men by Rapid immun oassa y interpretati on and review of laboratory results Normal Not Available Not Available 07/05 16:09:04 06/06/19 25 06/07/2024 LIPID PANEL cholesterol, total 179 mg/dL 100-19 9 Not Available [facility] ([facility]) [address] [facility] [place], [address], 06/07/2024 03:36:28 06/06/19 25 06/07/2024 LIPID PANEL triglyceride s 77 mg/dL 0-149 Not Available [facility] ([facility]) [address] [facility] [place], [address], 06/07/2024 03:36:28 06/06/19 25 06/07/2024 LIPID PANEL HDL cholesterol 54 mg/dL >39 Not Available [facility] ([facility]) [address] [place], [address], 06/07/2024 03:36:28 06/06/19 25 06/07/2024 LIPID PANEL VLDL cholesterol nayana 14 mg/dL 5-40 Not Available [facility] ([facility]) [address] [place], [address], 06/07/2024 03:36:28 06/06/19 25 06/07/2024 LIPID PANEL LDL chol calc ([facility]) 111 mg/dL 0-99 above high normal Not Available [facility] ([facility]) [address] [place], [address], 06/07/2024 03:36:28 06/06/19 25 06/07/2024 COMP. METAB OLIC PANEL (14) glucose 86 mg/dL 70-99 Not Available [facility] ([facility]) [address] [place], [address], 06/07/2024 03:36:30 06/06/19 25 06/07/2024 COMP. METAB OLIC PANEL (14) BUN 10 mg/dL 6-24 Not Available [facility] ([facility]) [address] [place], [address], 06/07/2024 03:36:30 06/06/19 25 06/07/2024 COMP. METAB OLIC PANEL (14) creatinine 0.85 mg/dL 0.57-1 .00 Not Available [facility] ([facility]) [address], [place], [address], 06/07/2024 03:36:30 06/06/19 25 06/07/2024 COMP. METAB OLIC PANEL (14) eGFR 87 mL/mi n/1.7 3 >59 Not Available [facility] ([facility]) [address] [place], [address], 06/07/2024 03:36:30 06/06/19 25 06/07/2024 COMP. METAB OLIC PANEL (14) BUN/creatini ne ratio 12 9-23 Not Available [facility] ([facility]) [address] [place], [address], 06/07/2024 03:36:30 06/06/19 25 06/07/2024 COMP. METAB OLIC PANEL (14) sodium 139 mmol/ L 134-14 4 Not Available [facility] ([facility]) [address] [place], [address], 06/07/2024 03:36:30 06/06/19 25 06/07/2024 COMP. METAB OLIC PANEL (14) potassium 4.2 mmol/ L 3.5-5. 2 Not Available [facility] ([facility]) [address] [place], [address], 06/07/2024 03:36:30 06/06/19 25 06/07/2024 COMP. METAB OLIC PANEL (14) chloride 104 mmol/ L 96-106 Not Available [facility] ([facility]) [address] [place], [address], 06/07/2024 03:36:30 06/06/19 25 06/07/2024 COMP. METAB OLIC PANEL (14) carbon dioxide, total 23 mmol/ L 20-29 Not Available [facility] ([facility]) [address] [facility] [place], [address], 06/07/2024 03:36:30 06/06/19 25 06/07/2024 COMP. METAB OLIC PANEL (14) calcium 9.3 mg/dL 8.7-10 .2 Not Available [facility] ([facility]) [address] [facility] [facility], [place], [address], 06/07/2024 03:36:30 06/06/19 25 06/07/2024 COMP. METAB OLIC PANEL (14) protein, total 7.2 g/dL 6.0-8. 5 Not Available [facility] ([facility]) [address] [facility], [place], [address], 06/07/2024 03:36:30 06/06/19 25 06/07/2024 COMP. METAB OLIC PANEL (14) albumin 4.5 g/dL 3.9-4. 9 Not Available [facility] ([facility]) [address] [facility], [place], [address], 06/07/2024 03:36:30 06/06/19 25 06/07/2024 COMP. METAB OLIC PANEL (14) globulin, total 2.7 g/dL 1.5-4. 5 Not Available [facility] ([facility]) [address] [facility] [facility], [place], [address], 06/07/2024 03:36:30 06/06/19 25 06/07/2024 COMP. METAB OLIC PANEL (14) bilirubin, total 0.6 mg/dL 0.0-1. 2 Not Available [facility] ([facility]) [address] [facility], [place], [address], 06/07/2024 03:36:30 06/06/19 25 06/07/2024 COMP. METAB OLIC PANEL (14) alkaline phosphatase 78 IU/L 44-121 Not Available [facility] ([facility]) [address] [facility], [place], [address], 06/07/2024 03:36:30 06/06/19 25 06/07/2024 COMP. METAB OLIC PANEL (14) AST (SGOT) 19 IU/L 0-40 Not Available [facility] ([facility]) [address] [place], [address], 06/07/2024 03:36:30 06/06/19 25 06/07/2024 COMP. METAB OLIC PANEL (14) ALT (SGPT) 18 IU/L 0-32 Not Available [facility] ([facility]) [address] [facility], [place], [address], 06/07/2024 03:36:30 06/06/19 25 06/07/2024 HEMOG LOBIN A1C hemoglobin A1C 4.9 % 4.8-5. 6 Predi abete s: 5.7 - 6.4 Diabe wilton: >6.4 Glyce veronica contr ol for adult s with diabe wilton: <7.0 Not Available [facility] ([facility]) [address] [facility], [place], [address], 06/07/2024 03:36:31 06/06/19 25 06/06/2024 CBC, PLATE LET, NO DIFFE RENTI AL WBC 9.0 x10e3 /uL 3.4-10 .8 Not Available [facility] ([facility]) [address] [place], [address], 06/07/2024 03:36:32 06/06/19 25 06/06/2024 CBC, PLATE LET, NO DIFFE RENTI AL RBC 4.30 x10e6 /uL 3.77-5 .28 Not Available [facility] ([facility]) [address] [place], [address], 06/07/2024 03:36:32 06/06/1906/06/2024 CBC, PLATE LET, NO DIFFE RENTI AL hemoglobin 13.2 g/dL 11.1-1 5.9 Not Available [facility] ([facility]) [address] [facility], [place], [address], 06/07/2024 03:36:32 06/06/1906/06/2024 CBC, PLATE LET, NO DIFFE RENTI AL hematocrit 40.4 % 34.0-4 6.6 Not Available [facility] ([facility]) [address] [facility], [place], [address], 06/07/2024 03:36:32 06/06/1906/06/2024 CBC, PLATE LET, NO DIFFE RENTI AL MCV 94 fL 79-97 Not Available [facility] ([facility]) [address] [facility] [facility], [place], [address], 06/07/2024 03:36:32 06/06/1906/06/2024 CBC, PLATE LET, NO DIFFE RENTI AL MCH 30.7 pg 26.6-3 3.0 Not Available [facility] ([facility]) [address] [facility], [place], [address], 06/07/2024 03:36:32 06/06/1906/06/2024 CBC, PLATE LET, NO DIFFE RENTI AL MCHC 32.7 g/dL 31.5-3 5.7 Not Available [facility] ([facility]) [address] [facility], [place], [address], 06/07/2024 03:36:32 06/06/1906/06/2024 CBC, PLATE LET, NO DIFFE RENTI AL RDW 11.9 % 11.7-1 5.4 Not Available [facility] ([facility]) [address] [facility], [place], [address], 06/07/2024 03:36:32 06/06/1906/0606/06/2024 CBC, PLATE LET, NO DIFFE PETER AL platelets 397 x10e3 /uL 150-45 0 Not Available [facility] ([facility]) [address] [facility], [place], [address], 06/07/2024 03:36:32 Result Notes None recorded. 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 Medical Equipment None [...] Updated DateTime 3 170.18 cm 30.4 kg/m2 62773.6 4 g 12 /min 97 [degF] 98 % 98 % 72 /min 116/64 mm[Hg] Angelica Kinerd, [facility] 3 15:12:09 Date Recorded Body height Body mass index (BMI) Body weight Oxygen saturation Oxygen saturation in Arterial blood by Pulse oximetry Heart rate Body temperature Systolic And Diastolic Provider Name and Address Organization Details Last Updated DateTime 5 170.18 cm 31.6 kg/m2 59987.8 7 g 98 % 98 % 80 /min 98.5 [degF] 116/81 mm[Hg] Abigail Quinton [facility] 5 08:54:55 Date Recorded Body height Body mass index (BMI) Body weight Respiratory rate Body temperature Heart rate Oxygen saturation Oxygen saturation in Arterial blood by Pulse oximetry Systolic And Diastolic Provider Name and Address Organization Details Last Updated DateTime 2 170.18 cm 28.2 kg/m2 76213.6 3 g 12 /min 97.2 [degF] 76 /min 98 % 98 % 110/76 mm[Hg] Angelica Kine [facility] 2 14:31:26 Date Recorded Body height Body mass index (BMI) Body weight Oxygen saturation Oxygen saturation in Arterial blood by Pulse oximetry Heart rate Body temperature Respiratory rate Systolic And Diastolic Provider Name and Address Organization Details Last Updated DateTime 5 170.18 cm 31.1 kg/m2 56040.3 9 g 99 % 99 % 76 /min 97.9 [degF] 16 /min 123/81 mm[Hg] Ysabel Schneider MA [facility] 5 15:50:25 Social History Question Answer Notes LastModified by Organizat ion Details LastModified Time Tobacco Smoking Status Never Smoker JOSEPH Gil, [facility] 06/02/2014 15:18:13 Do You Have An [...] Or The Highest Degree You Have Received? [id number] Information not available 10/19/2020 Are There Any [...] 10/19/2020 Are you able to care for yourself independently? 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 None Information not available 10/19/2020 Mental Status Question Answer Note LastModified by Organizat ion Details LastModified Time Do you feel stressed (tense, restless, nervous, or anxious, or unable to sleep at night)? [id number] 06/06/24 pt states daughter does not sleep [...] Atrial Fibrillation N High Blood Pressure N Thyroid Problems N Kidney or Bladder Problems N Depression Y COPD N Blood Clots N GI Problems N Have you had a mammogram in the last yea r? N Skin Problems N Eating Disorder N Anemia N Heart Attack (TN) N Diabetes N Anxiety Disorder N Muscle, Joint, or Bone Problems N Seizures/Epilepsy N Have you had a colonoscopy in the last 1 0 years? N Arthritis N Acid Reflux (GERD) N Cancer N Stroke N Allergies N Asthma N Have you had a PSA blood test in the las t year? N ADHD N Substance Abuse N High Cholesterol N Hepatitis N Liver Disease N Schizophrenia N Headaches N Osteoporosis N Heart Failure N Gynecological [...] OPV, Unspecified 1980 completed Татьяна As h, SITE ACQUISITION MANAGER [place], [place] [facility] 02/27/2018 12:01:10 OPV, Unspecified 1980 completed Татьяна As h, SITE ACQUISITION MANAGER [place] [facility] 02/27/2018 12:01:10 OPV, Unspecified 1980 completed Татьяна As h, SITE ACQUISITION MANAGER [place] [facility] 02/27/2018 12:01:10 OPV, Unspecified 11/16/1981 completed Татьяна As h, SITE ACQUISITION MANAGER [place] [facility] 02/27/2018 12:01:10 OPV, Unspecified 12/24/1985 completed Татьяна As h, SITE ACQUISITION MANAGER [place] [facility] 02/27/2018 12:01:10 MMR 05/04/1981 completed Татьяна Bryant, SITE ACQUISITION MANAGER [place] [facility] 02/27/2018 12:01:10 MMR 08/27/1991 completed Татьяна Bryant, SITE ACQUISITION MANAGER [place] [facility] 02/27/2018 12:01:10 DTaP-IPV 1980 completed Татьяна Bryant, SITE ACQUISITION MANAGER [place] [facility] 02/27/2018 12:01:10 DTaP-IPV 1980 completed Татьяна Bryant, SITE ACQUISITION MANAGER [place] [facility] 02/27/2018 12:01:10 DTaP-IPV 1980 completed Татьяна Bryant, SITE ACQUISITION MANAGER [place] [facility] 02/27/2018 12:01:10 DTaP-IPV 11/16/1981 completed Татьяна Bryant, SITE ACQUISITION MANAGER [place] [facility] 02/27/2018 12:01:10 DTaP-IPV 12/24/1985 completed Татьяна Bryant, SITE ACQUISITION MANAGER [place] [facility] 02/27/2018 12:01:10 Past Encounters Encounter ID Performer Location Encounter Start Date Encounter Closed Date Diagnosis/Indication Diagnosis SNOMED-CT Code Diagnosis ICD10 Code Diagnosis IMO Codes Diagnosis Note [id number] [facility] [address] [place] [address] 06/02/2014 15:04:44 06/02/2014 16:29:16 Health examination of sub-group [id number] 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 Will place the PPD test today. [id number] MD [facility]herme Brew[facility] ([facility] [address] [place] [address] 10/27/2014 16:23:54 10/27/2014 16:53:08 Contact dermatitis caused by urushiol from [facility] [place] 961743891 Take Medrol dose pack with meal and use the cream locally. Use OTC Benadryl as needed for itching (Pt has it). [id number] MD Guilherme Brewer ([facility]) [address] [place] [address] 12/27/2016 10:57:01 12/27/2016 15:21:11 Non-allergic anaphylaxis 89313026 T78.2XXS s/p bug stung 10 days ago, Doing well now. [id number] MD Guilherme Brewer ([facility]) [address] [place] [address] 04/18/2017 15:53:44 04/19/2017 09:49:53 Carpal tunnel syndrome 12790155 G56.01 R/side.Con firm with NCS. take gabapentin at nightPt has a wrist brace- may wear it at night and day PRN [id number] MD Guilherme Brewer ([facility]) [address] [place] [address] 06/18/2017 09:49:51 06/19/2017 17:01:37 History and physical examination, pre-employment 906837116 Z02.1 Cleared without restrictio n. PPD todate.Alr nagi uptodate with tdap per the pt.Denies to get flu shot. Carpal rossana tung syndrome 93707709 G56.01 R/side.Con firm with NCS. take gabapentin at nightPt has a wrist brace- may wear it at night and day PRN Addendum 06/18/17Wri st splint alone helps it seems. Overweight 826155526 E66 .3 Recommend to loose weight with diet control and exercise. [id number] MD Guilherme Brewer 14 [address] [facility] [address] [place] [address] 02/27/2018 11:11:12 02/28/2018 10:49:15 Cellulitis 002264632 L03.90 With abcess, already had I & D yesterday and on bactrim.Up date with Tdap per the pt (works at [employer] also her last child is 8 yrs old)Will sent out old pack for C& sensitivit y and new pack applied after cleaning with H2O2.. RTC tomorrow and in 1 wk [id number] MD Guilherme Brewer 14 IM 4 [facility] [address] [place], [place] [address] [address] 02/28/2018 13:50:56 03/01/2018 10:59:17 Cellulitis 843064765 L03.90 With abcess, already had I & [...] well. Complete bactrim, awaiting sensitivit y results. [id number] MD Guilherme Velásquez 14 IM 4 [facility] [place] [address] 03/01/2018 14:31:50 03/04/2018 15:32:19 Cellulitis 289280195 L03.90 Counseled on cellulitis and medication -continue Bactrim and start Clindamyci n, soak foot in warm soapy water 3 times a day. If worsening -go to ER if no improvemen t after starting new antibiotic Abscess 193857800 L02.91 Dr. Cornelius willing to take pt-apt scheduled for Sunday [id number] MD Guilherme Brewer 14 IM 4 [facility] [place] [address] 03/08/2018 12:01:34 03/08/2018 17:26:28 Eruption 142736792 R21 Probably due to clindamyci n, Pt to stop it ( so far completed 7 days Rx, mno discharge / local tenderness at I & D site)If no better, call in for probable triamcinol one topical. [id number] MD Guilherme Brewer 14 IM 4 [facility] [place] [address] 10/18/2018 09:00:41 10/21/2018 10:30:12 Contact dermatitis caused by urushiol from [facility] [place] 328906055 L25.5 Use the cream. Use protection while working in the yard. Body mass index 25-29 - overweight 631600109 Z68.26 Recommend to loose weight with diet control and exercise. [id number] MD Guilherme Brewer 14 IM 4 [facility] [place] [address] 10/19/2020 08:15:36 10/20/2020 11:31:46 Generalized anxiety disorder 23843308 F41.1 Better while on sertraline 25mg daily Ct it Aware of SEs. [id number] MD Guilherme Brewer 14 IM 4 [facility] [place] [address] 12/08/2020 12:29:38 12/10/2020 16:54:15 Contact dermatitis caused by urushiol from [facility] [place] 136401994 L25.5 Use the cream. Use protection while working in the yard. 1OTC hydrocorti kayye didn't help per the ptTry medrol dose nikia with mealbenadr yl OTC (pt has it) for itching. [id number] MD Guilherme Brewer 14 IM 4 [facility] [place] [address] 02/22/2021 14:36:02 02/23/2021 14:23:17 Generalized anxiety disorder 74616179 F41.1 Better while on sertraline 25mg daily Ct it Aware of SEs. Croupy cough 866376098 R 05.9 From her daughterRe commended OTC cough syrupHydra te wellCall if no better/ go to ER [id number] MD Guilherme Brewer 14 IM 4 [facility] [place] [address] 06/21/2021 14:21:17 06/22/2021 13:52:25 Generalized anxiety disorder 33097608 F41.1 Symptomati cole feels lot better.Ct all medication . deep breathing exercise as explained. Awre of medication side effects (weird dream/suic idal thoughts- to stop medication and call the office) Body mass index 25-29 - overweight 174657810 Z68.26 Recommend to loose weight with diet control and exercise. Long-term drug therapy 611037944 Z79.899 Vaccine de clined by patient 8413411644 02 Z28.21 Refuses flu and covid shots! [id number] MD Guilherme Brewer 14 [address] [facility] [address] [place] [address] 05/11/2022 14:52:52 05/12/2022 11:24:30 Generalized anxiety disorder 36130951 F41.1 Symptomati cole feels lot better.Ct all medication . deep breathing exercise as explained. Aware of medication side effects (weird dream/suic idal thoughts- to stop medication and call the office) Overweight 754126863 E66 .3 Recommend to loose weight with diet control and exercise. Long-term drug therapy 119695295 Z79.899 Influenza vaccination declined 097015125 Z28.21 [id number] LANDON RACHEL MD [facility] (METAL CANS SUPERVISOR) [address] [place] [address] 06/06/2024 08:46:53 06/11/2024 11:03:50 Adult health examination 369484461 Z00.00 - Reviewed risks for cardiovasc ular disease, infection, and cancer; ordered screening tests as appropriat e- Recommende d annual flu vaccine and updated 2559-4638 COVID vaccine Obesity 805511842 E66.81 1 Z68.31 - Discussed healthy behaviors, including eating a nutritious diet and incorporat ing regular physical activity into day- Provided handout on healthy lifestyle Diabetes m ellitus screening 648264590 Z13.1 - BMI 31.6 at age 44. DM2 screening recommende d per USPSTF; f/u A1c. Depression screening 171 839849 Z13.31 - Negative PHQ-9 Screening for malignant neoplasm of breast 237421127 Z12.31 - Due for screening mammogram- Patient prefers to wait before ordering Screening for malignant neoplasm of cervix 405657614 Z12.4 - Will obtain outside records for review to determine last Pap, HPV testing [id number] LANDON RACHEL MD [facility] (METAL CANS SUPERVISOR) [address] [place] [address] 07/16/2024 15:41:47 07/17/2024 11:17:10 Contact dermatitis caused by urushiol from [facility] 168079997 L25.5 - Rash consistent with known poison [...] Guarantor Name 10/14/2018 2 *SELF PAY* Star gaetanoyanni Sanchez 03/08/2018 SLIDING FEE SCHEDULE - DISCOUNT Dilcia Sanchez 10/18/2020 SLIDING FEE SCHEDULE - DISCOUNT Dilcia Sanchez 07/16/2024 1 [facility] (PPO) [id number] Pam Berry Laura [id number] Dilcia Sanchez 06/09/2024 1 [facility] - DOS PRIOR TO 2020 (MEDICAID REPLACEMENT - HMO) Dilcia Monique [id number] Dilcia Sanchez Notes Date Note Type Note Provider Name and Address Organization Details Recorded Time 021 text/ht ml Generic HPI TemplateReported by Patientpt exposed croup through her daughter who is better nowPt feeling sore throat and mild vinicius at night. denies fever chest SOB Anxiety/DepressionReported by PatientHPIFor quality, patient reportssymptoms improved. For severity, patient reportsdenies suicidal ideationsanddoes not interfere with activities of daily living. For duration, patient reportsstablizing. For onset/timing, patient reportsgradual. For modifying factors, patient reportscounsellingandmedications as directed. 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 For severity, patient reportsdenies suicidal ideationsanddoes not interfere with activities of daily living. For duration, patient reportsstablizing. For onset/timing, patient reportsgradual. For modifying factors, patient reportscounsellingandmedications as directed. 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 For severity, patient reportsdenies suicidal ideationsanddoes not interfere with activities of daily living. For duration, patient reportsstablizing. For onset/timing, patient reportsgradual. For modifying factors, patient reportscounsellingandmedications as directed. 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 No- Family history of [place], CVA? No known FHx Infection risk- Prior [...] cancer: Never smoker LANDON RACHEL MD Attn: Accounting,[address] [place] [address], [phone], [facility] 06/06/2024 09:41:46 025 text/ht ml ROS as noted in the HPI Poison iris rash- Was working in yard [...] lotion on rash LANDON RACHEL MD Attn: Accounting,[address] [place] [address], [phone], [facility] 07/16/2024 17:49:43 OBGyn Episode Ob Episode Information Episode Created Date Number of Fetuses Patient Bloodtype Patient rh Status Prepregnancy Weight lbs Domestic Partner Domestic Partner Phone Father Name Spanish Language Lecturer Status 06/06/19 25 1 CLOSED Fetus Data First Name Last Name Admitted to NICU Weight (g) Sex Living Outcome Pediatric Complications Fetus ID Race Codes Race Delivery Type 3316.66 4704 M Full Term 58209 Vaginal Gonzalez Calculation Initial Gonzalez Date Initial [...] Domestic Partner Domestic Partner Phone Father Name Spanish Language Lecturer Status 06/06/19 25 1 CLOSED Fetus Data First Name Last Name Admitted to NICU Weight (g) Sex Living Outcome Pediatric Complications Fetus ID Race Codes Race Delivery Type 3175.14 4 M Full Term 32710 Vaginal Gonzalez Calculation Initial Gonzalez Date Initial Exam Date Initial Exam Provider Initial Ultrasound Date Last Menstrual Period Date Ultra Sound Weeks Gestation 0 Eighteen To Twenty Week Gonzalez Update Ultra Sound Date Fundal Height At Umbil Quickening Date Ultra Sound Latest Weeks Gestation Final Gonzalez Confirmed By Final Ognzalez Confirmed Date Final Gonzalez Date Ultra Sound [...] Domestic Partner Domestic Partner Phone Father Name Spanish Language Lecturer Status 06/06/19 25 1 CLOSED Fetus Data First Name Last Name Admitted to NICU Weight (g) Sex Living Outcome Pediatric Complications Fetus ID Race Codes Race Delivery Type 3316.66 4704 F Full Term 33208 Vaginal Gonzalez Calculation Initial Gonzalez Date Initial [...]
--- OUTSIDE RECORDS SUMMARY | 2025-02-28 19:50 | XMS_ITS | Clinical Summary ---
Author Organization [facility] Care Team Providers Care Sweet Potato Disintegrator Name Role Phone Malachi Dow MD Primary [...] Screening 1980 Mammogram 1980 TdaP Immunization 1980 Hepatitis B Immunization (1 of 3 - 19+ 3-dose series) 01/27/1999 Pap Smear 01/27/2001 Human Papillomavirus (HPV) Immunization (1 - 3-dose SCDM series) 01/27/2007 Cervical Cancer Screening (CCS) 01/27/2010 HPV/Cotest 01/27/2010 Discussion re Starting/Frequency of Mammograms 2020 Influenza Immunization (#1) 2025 SARS-COV-2 Immunization ( - season) 2025 Cologuard 01/27/2025 Colonoscopy 01/27/2025 Colorectal Cancer Screening 01/27/2025 Immunochemical Fecal Occult Blood 01/27/2025 Respiratory Syncytial Virus (RSV) Immunization (Adult) (1 [...] age to complete this topic Care Teams Sweet Potato Disintegrator Relationship Specialty Start Date End Date Malachi Dow MD PCP - General Internal Medicine 05/31/17
--- OUTSIDE RECORDS SUMMARY | 2025-02-28 19:50 | XMS_ITS | Clinical Summary ---
Author Organization [facility] Address [address] [place] [address] Care Team Providers Care Tank Maker Wood Name Role Phone Malachi Dow MD Primary Care Provider [phone] Allergies No known active allergies Medications sertraline [...] 08/26/2024 Active Problems No known active problems Surgical History Surgery Date Site/Laterality Comments OTHER [...] Cancer Screening-Mammogram 1980 Cervical Cancer Screening 1980 Colon Cancer Screening-Colonoscopy 1980 Depression Screening 1980 Hepatitis C Screening 1980 Varicella Vaccines (1 of 2 - 13+ 2-dose series) 01/27/1993 Hepatitis B Screening 01/27/1998 Regular Well Visit/Exam 18-64 01/27/1998 HPV Vaccines (1 - 3-dose SCD M series) 01/27/2007 Influenza Vaccine (#1) 2025 DTaP/Tdap/Td Vaccine (2 - Td or Tdap) 12/06/2029 12/07/2019 Pneumococcal vaccine <65 Aged Out No longer eligible based on patient's age to complete this topic Insurance [facility] Care Teams Tank Maker Wood Relationship Specialty Start Date End Date Malachi Dow MD PCP - General 02/26/18
--- OUTSIDE RECORDS SUMMARY | 2025-02-28 19:50 | XMS_ITS ---
Author Organization Unknown ENCOUNTERS Encounter Performer Location Date Diagnosis Diagnosis Status Emergency RAVI EDUARDO [address] [address] [id number] RTN *Note: Encounters from your own facility or health system may be excluded. Allergies, Adverse Reactions, Alerts Allergen Type Severity Identification Date Medications Name Date Quantity Days Supplied GPI Number
--- NOTE | 2025-02-28 19:51 | ED_ITS ---
HPI - Wound/Laceration General Chief Complaint: Wound/Laceration Stated Complaint: Laceration to Right Elbow Time Seen by Provider: 02/28/25 19:51 Source: patient Mode of arrival: ambulatory Limitations: no limitations History of Present Illness HPI narrative: 45 yo F presents with pain to R elbow and L knee. tripped up stairs and hit concrete. Able to get up on her own. Denies LOC. Has laceration to R elbow that she thinks needs sutured. Ambulatory with steady gait. All systems reviewed and negative except as noted above. Related Data Home Medications ?Medication ?Instructions ?Recorded ?Confirmed ?Last Taken ?Type MIRENA 11/08/24 Unknown History Allergies Allergy/AdvReac Type Severity Reaction Status Date / Time No Known Allergies Allergy Verified 02/28/25 20:00 [facility] Family History Family History (Updated 12/05/19 @ 12:29 by Cary Grady RN) Other Unknown family medical history Social History Social History Smoking status: Never smoker Substance use: never Spiritual care concerns: No Comments At time of signature, agree with nursing past medical, surgical, social and family history. There is no relevant family history pertinent to the presenting complaint. Exam Narrative: GENERAL: This is a well-nourished, well-developed patient, in no apparent distress. HEAD: normocephalic, atraumatic. EYES: PERRL. Sclera clear/white. Vision is grossly intact. EARS: External ears normal NOSE: External nose normal NECK: Neck supple, non-tender without lymphadenopathy, masses or thyromegaly. CARDIOVASCULAR: Regular rate and rhythm without murmurs, gallops, or rubs. RESPIRATORY: Clear to auscultation. Breath sounds equal bilaterally. No wheezes, rales, or rhonchi. SKIN: warm, Dry, intact with no suspicious lesions or rash, good texture and turgor. Abrasion to anterior aspect of left knee approximate 1 cm diameter. Laceration to right elbow approximate 0.75 cm. Bleeding controlled. NEURO: awake, alert, and oriented to person, place and time. There were no obvious focal neurologic abnormalities. EXTREMITIES: No joint tenderness, effusion, or edema noted. Range of motion to right elbow normal. Course Course Level of Care: Express Care Visit Vital Signs Vital signs: Vital Signs Temperature 36.7 C 02/28/25 20:00 Pulse Rate 70 02/28/25 20:00 Respiratory Rate 18 02/28/25 20:00 Blood Pressure 149/75 H 02/28/25 20:00 Pulse Oximetry 100 02/28/25 20:00 Oxygen Delivery Room Air 02/28/25 20:00 Temperature 36.7 C 02/28/25 20:00 Pulse Rate 70 02/28/25 20:00 Respiratory Rate 18 02/28/25 20:00 Blood Pressure 149/75 H 02/28/25 20:00 Pulse Oximetry 100 02/28/25 20:00 Oxygen Delivery Room Air 02/28/25 20:00 Reviewed Procedures Laceration Laceration 1: Date: 02/28/25 Time: 20:00 Site: upper extremity (elbow) Side (If applicable): right Size (cm): 0.75 Description: linear Depth: simple, single layer Local Anesthetic: lidocaine 1% Amount of anesthesia used (mL): 3 Pre-repair: wound explored and irrigated ====== Skin Level ====== Skin layer closed with: nylon Size (cm): 4-0 Number of sutures: 2 Technique: simple, interrupted ====== Subcutaneous Layer ====== ====== Muscle Layer ====== ====== Tendon Layer ====== MDM - Wound/Laceration MDM Narrative Medical decision making narrative: laceration to right elbow repair it with sutures. Patient tolerated well. Recommend follow-up for suture removal in 7-10 days. Differential Diagnosis Differential diagnosis: Likely laceration, abrasion and avulsion of skin Discharge Plan Discharge Clinical Impression: Laceration of elbow, right Qualifiers: Encounter type: initial encounter Qualified Code(s): S51.011A - Laceration without foreign body of right elbow, initial encounter Abrasion of knee, left Qualifiers: Encounter type: initial encounter Qualified Code(s): S80.212A - Abrasion, left knee, initial encounter Patient Disposition: Home Condition: Stable Instructions: Care For Your Stitches (ED), Laceration (ED) Additional Instructions: Keep wound clean and dry. Wash with mild soap and water. Do not pull or scrub at sutures. Follow up in 7 to 10 days for suture removal. Take tylenol or ibuprofen every 6 to 8 hours as needed for pain. Patient Language: East Timorese Prescriptions: No Action MIRENA prednisone 10 mg tablet 10 mg PO DIRECTED Qty: 18 0RF Rx Instructions: take 3 tablets for 3 days, 2 tablets for 3 days, 1 tablet for 3 days. triamcinolone acetonide 0.1 % cream 1 applic topical TID Qty: 80 0RF Follow-up/Referrals: Nick,Yulisa Whipple MD [Primary Care Provider, [facility]] Time of Disposition: 20:12
[2025-02-28 20:00] VITALS: BP 149/75; PULSE 70; RESP 18; TEMP 36.7; O2SAT 100
== END 2025-02-28 20:24 | disposition home or self-care (01) ==
PROVIDERS: Emergency Provider Nurse Practitioner Family; PCP Family Medicine
DX: S51.011A Laceration without foreign body of right elbow, initial encounter (principal); S80.212A Abrasion, left knee, initial encounter; W10.9XXA Fall (on) (from) unspecified stairs and steps, initial encounter
CPT/HCPCS: 12001; 99212; G0463; J2003